=== PATIENT | male | born 1940 ===

== ENCOUNTER 2016-07-11 13:19 | Inpatient (IN) | payer MEDICARE, OTHER ==
[2016-07-11] VITALS (7 sets, daily range): BP systolic 112–144; BP diastolic 69–77; PULSE 68–84; RESP 16–19; O2SAT 95–98
[~2016-07-11] VITALS: Ht 167.6 cm; Wt 105.9 kg
--- NOTE | 2016-07-11 13:47 | ED.REPORT ---
HPI-Fever Date of Service July 11, 2016 ED Provider: History of Present Illness: weak, tired, no eating since Saturday. nausea, no vomiting. [facility] is primary care [facility]. unknown A1c. home meds, metformin, generic lipitor meds are from [facility] in [place]. normally healthy ongoing for 3 to 4 days. Went to bed early Saturday and has not been out of bed since. will move from bed to couch. denies pain Nursing Notes Stated Complaint: TIRED/FEVER/LOSS OF APPETITE Chief Complaint: General Complaint Nursing Notes Reviewed: Yes Allergies: Coded Allergies: No Known Allergies (Unverified , 07/11/16) Scheduled Aspirin Chew (Aspirin Chew) 81 Mg Chew 81 MG PO DAILY Atorvastatin (Lipitor) 20 Mg Tablet 20 MG PO DAILYWD Betamethasone/Propylene Glyc (Betamethasone Dp Aug 0.05% Crm) 15 Gm Cream..g. 1 APPLIC TP DAILY TO DRY PATCHES ON LEG AND TORSO Lisinopril (Lisinopril) 10 Mg Tablet 10 MG PO DAILY Metformin ER (Metformin ER) 500 Mg Tablet 500 MG PO DAILYWD Scheduled PRN Ibuprofen (Ibuprofen) 200 Mg Capsule 200-400 MG PO QID PRN PRN For Pain General Time Seen by MD: 13:46 Chief Complaint Fever currently Hx Obtained From: Spouse Onset Occurred: 3 days ago Symptom Duration: Since onset Past Medical History Past Medical History h/o pancreatitis Reports: Diabetes mellitus (dx as a DM for 10 years 07/11/2016), Hyperlipidemia, Hypertension, Denies: Asthma Past Surgical History Reports: Cholecystectomy Smoking History Former Smoker (quit 5 years ago, will occasion smoke a cigar) Social History Alcohol Use: Denies alcohol use Drug Use: Denies drug use Other Social History: Occupation lives with . 1 [facility] 07/11/2016 Ambulatory Status Independent Review of Systems Basic Review of Systems Musculoskeletal: No extremity swelling, No extremity pain, Full range of motion , Joints NL Allergy / Immune: No allergy Psychiatric: Normal thought content Physical Exam Initial Vital Signs Vital Signs (First) Date Time Temp Pulse Resp B/P Pulse Ox O2 Delivery O2 Flow Rate FiO2 07/11/16 13:31 37.6 84 19 124/72 95 Room Air Initial VS: Reviewed, Vital signs normal Head / Eyes: Atraumatic, Normocephalic, PERRL ENT: Mucous membranes moist, Conjunctiva normal, No scleral icterus Abdomen / GI: Soft, Non-tender, No guarding, No rebound, No distention Back: No CVA tenderness Lymphatic: No lymphadenopathy Extremities: Vascular intact, Neuro intact, No swelling, No tenderness Psychiatric: Mood/affect normal, Behavior normal, Normal thought content General/Constitutional: Awake, Alert, No acute distress Appearance / Presentation: Positive: Appears older than age Neck: Atraumatic, Supple, No meningismus Respiratory / Chest: Atraumatic, Breath sounds NL, Breath sounds = bilat Cardiovascular: Heart rate NL Heart Sounds / Murmur: Positive: Murmur present... Skin: Atraumatic, Color NL, No rash Neurologic: Oriented X3, Speech NL, No motor deficits Interpretation & Diagnostics Interpretation & Diagnostics: PROCEDURE: CT BRAIN WITHOUT CONTRAST ([id number]) INDICATIONS: 75-year-old man with weakness. TECHNIQUE: Noncontrast 4.5 mm thick angled axial sections acquired from the foramen magnum to the vertex, with coronal reformats. COMPARISON: None. FINDINGS: Image quality: Excellent. CSF spaces: Basal cisterns are patent. No extra-axial fluid collections. The ventricles are symmetric in size and shape. Brain: No intracranial bleeds or masses. There is moderate cerebral volume loss for age, with resultant sulcal prominence, most pronounced in frontal lobes bilaterally. There are mild periventricular and deep white matter chronic small vessel ischemic changes. There is intracranial internal carotid artery atherosclerosis. Skull and face: Calvarium and visualized facial bones appear intact, without suspicious lesions. Sinuses: Visualized sinuses and mastoids are clear. IMPRESSION: 1. No acute intracranial abnormalities. 2. Mild cerebral volume loss and chronic microvascular ischemic changes. Dictated by: Darin Denise M.D. on 07/11/2016 at 15:04 Approved by: Darin Denise M.D. on 07/11/2016 at 15:12 Lab Results Interpretation Result Diagram: 07/11/16 1345 07/11/16 1345 Test 07/11/16 13:45 07/11/16 14:10 White Blood Count 14.1th/mm3 (3.8-10.1) Red Blood Count 4.44mil/mm3 (4.40-5.80) Hemoglobin 13.2g/dL (13.8-17.2) Hematocrit 38.6% (41.0-50.0) Mean Corpuscular Volume 86.9fL (81-100) Mean Corpuscular Hemoglobin 29.7pg (27.0-35.0) Mean Corpuscular Hemoglobin Concent 34.2% (32.0-37.0) Red Cell Distribution Width 12.3% (12.3-15.4) Platelet Count 209bil/L (150-400) Neutrophils (%) (Auto) 83.6% (40-74) Lymphocytes (%) (Auto) 8.9% (14-46) Monocytes (%) (Auto) 7.0% (4-12) Eosinophils (%) (Auto) 0% (0-5) Basophils (%) (Auto) 0.1% (0-3) Sodium Level 129mEq/L (134-144) Potassium Level 4.3mEq/L (3.5-5.2) Chloride Level 89mEq/L (97-108) Carbon Dioxide Level 23mmol/L (18-29) Blood Urea Nitrogen 17mg/dL (8-27) Creatinine 0.84mg/dL (0.76-1.27) Estimat Glomerular Filtration Rate 95mL/min (>59) Glucose Level 314mg/dL (60-99) Lactic Acid Level 1.7mmol/L (0.4-2.0) Calcium Level 9.3mg/dL (8.5-10.1) Total Bilirubin 0.6mg/dL (0.0-1.2) Aspartate Amino Transf (AST/SGOT) 13U/L (0-50) Alanine Aminotransferase (ALT/SGPT) 10U/L (0-44) Alkaline Phosphatase 72U/L (25-160) Troponin T < 0.010ug/L (0.0-0.011) Pro-B-Type Natriuretic Peptide 623.3pg/mL (0-486) Total Protein 7.6g/dL (6.4-8.4) Albumin 3.3g/dL (3.4-5.0) Urine Color Yellow (YELLOW) Urine Appearance Hazy (CLEAR,HAZY) Urine pH 5.5 (5.0-8.0) Urine Specific [place] 1.030 (1.003-1.035) Urine Protein 300mg/dL (NEG,TRACE) Urine Glucose (UA) 1000mg/dL (NEGATIVE) Urine Ketones 15mg/dL (NEGATIVE) Urine Occult Blood Sm (NEGATIVE) Urine Nitrite Negative (NEGATIVE) Urine Bilirubin Negative (NEGATIVE) Urine Urobilinogen Normalmg/dL (NORMAL) Urine Leukocyte Esterase Negative (NEGATIVE) Urine RBC 0-2/hpf (0-2) Urine WBC 0-5/hpf (0-5) Urine Epithelial Cells Occasional/hpf (NONE-MOD) Urine Crystals None seen (NONE SEEN) Urine Bacteria Few/hpf (NONE-FEW) Urine Hyaline Casts Occasional/lpf (NONE) Urine Granular Casts Occasional (NONE SEEN) Urine Waxy Casts Occassional (NONE SEEN) Urine Red Blood Cell Casts None seen (NONE SEEN) Urine White Blood Cell Casts None seen (NONE SEEN) Urine Mucus Present (None Seen) Urine Trichomonas None seen (NONE SEEN) Urine Yeast None (NONE SEEN) Urinalysis Comment None Urine Culture Reflexed Not indicated X-Ray Chest Interpretation Chest Xray Interpretation: ROCEDURE: X-RAY CHEST, TWO VIEWS ([id number]) INDICATIONS: fever TECHNIQUE: 2 views of the chest were acquired. COMPARISON: None. FINDINGS: Surgical changes and devices: None. Lungs and pleura: No pleural effusions or pneumothorax. Lungs are clear. Slight increased interstitial markings within the infrahilar regions probably are chronic. Mediastinum: Mediastinal contours are normal. Heart size is normal. There may be mild aortic atherosclerosis. Bones and chest wall: No suspicious bony abnormalities. Degenerative changes of the bilateral shoulders and spine are incidentally noted. Soft tissues appear unremarkable. IMPRESSION: No acute cardiopulmonary process is evident. No definite pneumonia or overt heart failure. Dictated by: Robbie Mesa M.D. on 07/11/2016 at 13:27 Approved by: Robbie Mesa M.D. on 07/11/2016 at 13:28 CT Abd / Pelvis Interpretation After the administration of intravenous contrast, 5 mm thick sections acquired from the diaphragm to the symphysis. 5 mm coronal and sagittal reformats were acquired. For radiation dose reduction, the following was used: automated exposure control, adjustment of mA and/or kV according to patient size. COMPARISON: None. FINDINGS: Image quality: Diagnostic. ABDOMEN: Lung bases: Lung bases are clear. Heart size is normal. Solid organs: The gallbladder is surgically absent. Mild intrahepatic biliary dilatation is present with the common bile duct is prominent in size then noted to measure up to approximately 9 mm in diameter. The liver demonstrates a small hepatic cyst along the anterior margin of the medial left hepatic lobe. The spleen, adrenals, and kidneys are within normal limits. A few small cysts probably are present involving the left kidney. No solid renal lesions are appreciated. There is no hydronephrosis. Subtle calcifications within the pancreas are noted. The pancreas is otherwise unremarkable. No peripancreatic inflammation is identified. Peritoneum and bowel: The stomach, duodenum, and remainder of the small bowel loops are nondilated. Moderate residual stool is seen within the colon. There is no bowel obstruction. No mesenteric inflammation is evident. There is no free fluid, loculated fluid collection or free air. Nodes and vessels: No retroperitoneal or mesenteric adenopathy by size criteria. Aorta and inferior vena cava are normal in size. Aortic and iliac artery atherosclerosis is present. Miscellaneous and bones: No ventral hernias. Moderate to severe multilevel degenerative changes of the imaged thoracolumbar spine are present. No acute fractures or suspicious osseous lesions are present. PELVIS: Genitourinary: Bladder wall thickness is normal. The prostate is not enlarged. Coarse calcifications within the prostate are noted. The ureters are nondilated. Miscellaneous: No inguinal hernias or adenopathy. No free fluid, loculated fluid collection or free air is evident. Bones: No suspicious bony lesions. No acute pelvic fractures are evident. There are severe degenerative changes of the bilateral hips. Calcifications involving the proximal bilateral hamstrings tendons may be related to calcific tendinitis or chronic partial-thickness injuries. Severe degenerative changes of the sacroiliac joints are also present. IMPRESSION: 1. No acute abnormality is evident within the abdomen or pelvis. 2. No bowel obstruction or bowel inflammation. 3. Mild enlargement of the common bile duct probably is within normal limits for this patient, given the prior cholecystectomy. If the patient's liver function tests are persistently elevated and/or increasing, MRCP may be helpful to exclude the possibility of a small stone within the common bile duct. 4. Prominent degenerative changes of the lumbosacral spine and hips. Dictated by: Robbie Mesa M.D. on 07/11/2016 at 14:15 Approved by: Robbie Mesa M.D. on 07/11/2016 at 14:21 Re-Eval/Medical Decision Med Decision/Clinical Course 75 year old male presents for evualation of wekness and fatigue with vomiting. Presents with . She reports he went to bed early on Saturday and has been on the couch or in bad since then. Chest x-ray is normal, no source of fever is identifed in the urine or abd CT. Consult with Dr. Callejas, patient is being admited to the hospital. No sign of appendicitis or mengitis Source of Hx: Old records (none in EMR) Discharge & Departure Impression: Primary Impression: Fever Fever type: unspecified Qualified Code: R50.9 - Fever, unspecified Additional Impressions: Heart murmur Endocarditis Endocarditis type: unspecified Chronicity: acute Qualified Code: I33.9 - Acute and subacute endocarditis, unspecified Generalized weakness Disposition: ADMITTED TO HOSPITAL EDSupervising Provider for APC: José Miguel Callejas MD Attending Statement This is a patient initially seen and examined by the mid-level provider. However I personally interviewed and examined the patient. This is a 75-year- old type II diabetic without a reported history of manic murmur or cardiac disease who presents complaining of several days of fever and progressive global weakness to the point he can barely get out of bed. He has been running fevers up to 103 as of this morning. I Fredy had no cough, shortness of breath , abdominal pain, vomiting, dysuria or rash. He was seen by the mid-level provider workup is pursued that is notable for leukocytosis, mild nonspecific hyponatremia, but his chest x-ray is negative for dwight infiltrate or abnormality, urinalysis is negative. Abdominal CT was negative for an intra-abdominal source, although I was unable to obtain any GI symptomatology or exam findings. When I examined the patient, he has a markedly 3-4 out of 6 heart murmur-and states that that is new (or at least that he is previously unaware of) a heart murmur. This certainly raises concern and possibility of endocarditis is an etiology. Given a third blood cultures being drawn. I have ordered an echocardiogram to be obtained as an inpatient to evaluate for endocarditis. I have also discussed the case with the infectious disease [employer] sales consultant Dr. Canseco and will follow. He recommends drawing the fluid culture, but not starting antibiotics empirically at this time. She is being admitted to the hospitalist service. I spoke with the admitting hospitalist, as also requested a respiratory PCR panel be added-so I have ordered this. Patient does not know his current medication list, the family indicates there someone arriving at home and will be able to go through and will be able to call to get a list of his medications. Yesika Flynn July 11, 2016 13:47 José Miguel Callejas MD July 11, 2016 16:09
[2016-07-11] MEDS ORDERED: 0.9% Sodium Chloride 1,000 ML IV ONE (14:05)
[2016-07-11 14:12] LABS: BASOPHILS % (AUTO) 0.1 % (0-3); EOSINOPHILS % (AUTO) 0 % (0-5); Mean Corpuscular Hemoglobin 29.7 pg (27.0-35.0); Mean Corpuscular Volume 86.9 fL (81-100); NEUTROPHILS % (AUTO) 83.6 % (40-74); Platelet Count 209 bil/L (150-400)
[2016-07-11 14:26] LABS: TROPONIN T < 0.010 ug/L (0.0-0.011)
--- NOTE | 2016-07-11 14:29 | DRSVH ---
PROCEDURE: X-RAY CHEST, TWO VIEWS ([id number]) INDICATIONS: fever TECHNIQUE: 2 views of the chest were acquired. COMPARISON: None. FINDINGS: Surgical changes and devices: None. Lungs and pleura: No pleural effusions or pneumothorax. Lungs are clear. Slight increased intersti tial markings within the infrahilar regions probably are chronic. Mediastinum: Mediastinal contours are normal. Heart size is normal. There may be mild aortic ather osclerosis. Bones and chest wall: No suspicious bony abnormalities. Degenerative changes of the bilateral shoul ders and spine are incidentally noted. Soft tissues appear unremarkable. IMPRESSION: No acute cardiopulmonary process is evident. No definite pneumonia or overt heart failur e. Dictated by: Robbie Mesa M.D. on 07/11/2016 at 13:27 Approved by: Robbie Mesa M.D. on 07/11/2016 at 13:28
[2016-07-11 14:36] LABS: APPEARANCE,URINE HAZY (CLEAR,HAZY); COLOR,URINE YELLOW (YELLOW); PH,URINE 5.5 (5.0-8.0)
[2016-07-11 14:37] LABS: OCCULT BLOOD,URINE SM (NEGATIVE); UROBILINOGEN,URINE NORMAL (NORMAL)
--- NOTE | 2016-07-11 15:13 | DRSVH ---
PROCEDURE: CT BRAIN WITHOUT CONTRAST ([id number]) INDICATIONS: 75-year-old man with weakness. TECHNIQUE: Noncontrast 4.5 mm thick angled axial sections acquired from the foramen magnum to the vertex, with c oronal reformats. COMPARISON: None. FINDINGS: Image quality: Excellent. CSF spaces: Basal cisterns are patent. No extra-axial fluid collections. The ventricles are symmet ed in size and shape. Brain: No intracranial bleeds or masses. There is moderate cerebral volume loss for age, with resul tant sulcal prominence, most pronounced in frontal lobes bilaterally. There are mild periventricular and deep white matter chronic small vessel ischemic changes. There is intracranial internal carotid artery atherosclerosis. Skull and face: Calvarium and visualized facial bones appear intact, without suspicious lesions. Sinuses: Visualized sinuses and mastoids are clear. IMPRESSION: 1. No acute intracranial abnormalities. 2. Mild cerebral volume loss and chronic microvascular ischemic changes. Dictated by: Darin Denise M.D. on 07/11/2016 at 15:04 Approved by: Darin Denise M.D. on 07/11/2016 at 15:12
--- NOTE | 2016-07-11 15:23 | DRSVH ---
PROCEDURE: CT ABDOMEN AND PELVIS WITH CONTRAST ([id number]) INDICATIONS: fever TECHNIQUE: After the administration of intravenous contrast, 5 mm thick sections acquired from the diaphragm to the symphysis. 5 mm coronal and sagittal reformats were acquired. For radiation dose reduction, the following was used: automated exposure control, adjustment of mA and/or kV according to patient siz e. COMPARISON: None. FINDINGS: Image quality: Diagnostic. ABDOMEN: Lung bases: Lung bases are clear. Heart size is normal. Solid organs: The gallbladder is surgically absent. Mild intrahepatic biliary dilatation is present with the common bile duct is prominent in size then noted to measure up to approximately 9 mm in diam eter. The liver demonstrates a small hepatic cyst along the anterior margin of the medial left hepat ic lobe. The spleen, adrenals, and kidneys are within normal limits. A few small cysts probably are present involving the left kidney. No solid renal lesions are appreciated. There is no hydronephro sis. Subtle calcifications within the pancreas are noted. The pancreas is otherwise unremarkable. No peripancreatic inflammation is identified. Peritoneum and bowel: The stomach, duodenum, and remainder of the small bowel loops are nondilated. Moderate residual stool is seen within the colon. There is no bowel obstruction. No mesenteric infl ammation is evident. There is no free fluid, loculated fluid collection or free air. Nodes and vessels: No retroperitoneal or mesenteric adenopathy by size criteria. Aorta and inferior vena cava are normal in size. Aortic and iliac artery atherosclerosis is present. Miscellaneous and bones: No ventral hernias. Moderate to severe multilevel degenerative changes of the imaged thoracolumbar spine are present. No acute fractures or suspicious osseous lesions are pre sent. PELVIS: Genitourinary: Bladder wall thickness is normal. The prostate is not enlarged. Coarse calcificatio ns within the prostate are noted. The ureters are nondilated. Miscellaneous: No inguinal hernias or adenopathy. No free fluid, loculated fluid collection or free air is evident. Bones: No suspicious bony lesions. No acute pelvic fractures are evident. There are severe degener ative changes of the bilateral hips. Calcifications involving the proximal bilateral hamstrings tend ons may be related to calcific tendinitis or chronic partial-thickness injuries. Severe degenerative changes of the sacroiliac joints are also present. IMPRESSION: 1. No acute abnormality is evident within the abdomen or pelvis. 2. No bowel obstruction or bowel inflammation. 3. Mild enlargement of the common bile duct probably is within normal limits for this patient, given the prior cholecystectomy. If the patient's liver function tests are persistently elevated and/or i ncreasing, MRCP may be helpful to exclude the possibility of a small stone within the common bile mnanie t. 4. Prominent degenerative changes of the lumbosacral spine and hips. Dictated by: Robbie Mesa M.D. on 07/11/2016 at 14:15 Approved by: Robbie Mesa M.D. on 07/11/2016 at 14:21
[2016-07-11] MEDS ORDERED: METF500T7 PO (16:06)
[2016-07-11] MEDS ORDERED: ATOR20TA PO (16:06)
[2016-07-11] MEDS ORDERED: LISI10TA PO (16:06)
[2016-07-11] MEDS ORDERED: ASPI81TA3 PO (16:10)
[2016-07-11] MEDS ORDERED: IBUP200C PO (16:11)
[2016-07-11] MEDS ORDERED: Alum-Mag Hydrox-Simeth 30 mL Suspension PO PRN ×2 (16:20→18:40)
[2016-07-11] MEDS ORDERED: Ondansetron 2 mg/mL 2 mL Inj IVPUSH PRN ×2 (16:20→18:40)
[2016-07-11] MEDS ORDERED: BETA15CR38 TP (16:26)
[2016-07-11] MEDS: 0.9% Sodium Chloride 1,000 ML IV SCH (17:19)
--- NOTE | 2016-07-11 17:57 | PCM.HPMED ---
Subjective Date of Service July 11, 2016 Primary Provider: Admitting Physician: Tamia Hollis DO Primary Care Physician: Georges Attending Physician: Tamia Hollis DO Allergies Coded Allergies: No Known Allergies (Unverified , 07/11/16) PMH Social History Hx Alcohol Use: Yes (less than once a month) Hx Substance Use: No Smoking Status: Former Smoker Exam Vital Signs Vital Sign - Last Date Time Temp Pulse Resp B/P Pulse Ox O2 Delivery O2 Flow Rate FiO2 07/11/16 17:44 38.6 82 18 134/72 98 Room Air Lab and Diagnostics Result Diagram: 07/11/16 1345 07/11/16 1345 Assessment & Plan HPI: Patient is a 75-year-old gentleman who presented to the emergency room with the complaint of weakness and fevers. The patient states that for the last few days he has been feeling weak and has had temperatures from 101F -103 F. The patient has also complained of overall generalized weakness. There is a new onset murmur that was found upon exam while in the ER and there are some concerns for possible endocarditis. The patient does have leukocytosis with a white blood cell count of 14.1, brain CT was negative, abdomen CT was negative. Both cardiology and infectious disease were consulted from the ED. Home medications: Aspirin 81 mg daily Lipitor 20 mg daily Betamethasone when necessary Ibuprofen 200-400 mg by mouth 4 times a day Lisinopril 10 mg daily Metformin 500 mg daily with dinner. Allergies: No known allergies PMHx: Hypertension Hyperlipidemia Diabetes SHx: Cholecystectomy FHx: Mother in her 80s secondary to PR Brother brain aneurysm Family history of CVA SocHx: Occupation: Retired [employer] Tobacco history: Patient quit 5 years ago previous one to 2 pack per day smoker for 20 years Alcohol use: Occasional use, previous heavy drinker quit heavy drinking 26 years ago Drug use: Patient denies ROS: A complete review of systems was performed or attempted to be performed. Please see HPI for pertinent positives, all other systems are negatives. Physical Exam: GEN: Patient was awake, alert, responding appropriately to questions, lethargic HEENT: Pupils equal round and reactive to light, extraocular eye muscles intact , Neck soft supple, trachea midline, nomocephalic/atraumatic CV: +S1/S2, regular rate and rhythm, grade 2/6 systolic murmur auscultated Respiratory: CTAB, no wheezes, rales, rhonchi GI: +bowel sounds x4, soft, compressible, nontender to palpation Skin: Warm to touch, moist EXT: no clubbing, cyanosis, edema Neuro: Cranial nerves II-XII grossly intact Psych: mood and affect were appropriate Assessment and Plan 75-year-old male presents with a complaint of lethargy and fever SIRS criteria met (present on admission) -Leukocytosis white blood cell count 14.1 -Fever 38.6 -Blood cultures pending -Viral PCR pending -Antibiotics to start after echo as per infectious disease -Infectious disease consulted (Dr. Canseco) Possible endocarditis (present on admission) -Stat echo for the morning -Cardiology consulted (Dr. Monge) -Start antibiotics after echo -Continue telemetry Diabetes -Hemoglobin A1c pending -Insulin sliding scale -Accu-Cheks before meals and at bedtime -Hold metformin as patient recently had contrast for imaging studies - Continue gentle hydration secondary to IV contrast and metformin use Hyperlipidemia -Continue home dose of atorvastatin Hypertension -Continue home dose of lisinopril 10 mg daily DVT prophylaxis: Lovenox Diet: Diabetic Code Status: Full code Disposition: Due to the nature of the patient's current diagnosis anticipated stay is greater than 2 midnight. Time spent 1 hour Tamia Hollis DO July 11, 2016 17:57
[2016-07-11] MEDS ORDERED: Polyethylene Glycol (PEG) 17 Gm Powder PO PRN (18:40)
--- NOTE | 2016-07-11 18:40 | NUR ---
Admit \ Pt. admitted to unit from ER at 1655. Pt. oriented to room. Admit question completed. Med rec completed. Pt. reports no pain. Pt. vitals: temp 38.6, pulse 82, respirations 18, bp 134/72, 98% O2 on room air. Bed in lowest position. Call in pt. reach.
[2016-07-11] MEDS ORDERED: Glucose 40% Oral Gel 15 Gm Tube PO PRN (18:50)
--- NOTE | 2016-07-11 19:45 | PCM.ADCARE ---
Advance Care Planning Note CODE STATUS: Purpose of encounter: Goals of care Parties in attendance: The patient, his Courtney, his son Bennett Decisional capacity: Good Plan: The patient is aware of the current diagnosis and would like to continue to be full code. The patient and his family understands that this means for chest compressions, intubation, pressors, and all measures involved with CPR. CODE STATUS: Full code Time spent with advanced care planning: Greater than 16 minutes Tamia Hollis DO July 11, 2016 19:45
[2016-07-11] MEDS: Insulin LISPRO 300 Unit/3 mL Inj SUBQ SCH (21:48)
[2016-07-12] VITALS (10 sets, daily range): BP systolic 126–150; BP diastolic 65–74; PULSE 61–79; RESP 18–20; O2SAT 93–97
[2016-07-12] MEDS: 0.9% Sodium Chloride 1,000 ML IV SCH ×3 (03:21→21:41)
--- NOTE | 2016-07-12 05:09 | NUR ---
Fever Moderate fever max T 38.2, pt flushed face, feel chills,Tylenol administered at evening, fever gradually resolved. T went up again around 0130, Tylenol 975mg administered, recheck in about 1hr: fever remains 38, Ibuprofen administered, cold washcloth applied on forehead, remove the blanket, will recheck T. plan to hold ABX until ECHO done this am to r/o Endocarditis. Blood culture pending. Oral fluid encouraged to prevent dehydration, VI405ms/hr running. Pt does no show s/s of infection of respiration,GI/ or skin, denies SOB,cough,nasal discharge ,abdominal pain,n/v/diarrhea or urinary urgency,dysuria or flank pain. Denies headache,no stiff neck. denies chest pain or palpitation. SR 70-90s on tele. Soft systolic murmur. Addendum: 07/12/16 at 0544 by SEPIDEH OGLESBY RN Fever resolved, T37.1
--- NOTE | 2016-07-12 06:26 | NUR ---
STAT ECHO ECHO Department ([id number]) called this morning,no one answers the phone, message left: STAT ECHO ordered and need to be done this morning. Report will be given to incoming day shift.
[2016-07-12 06:31] LABS: Mean Corpuscular Hemoglobin 29.9 pg (27.0-35.0); Mean Corpuscular Volume 87.6 fL (81-100)
[2016-07-12 07:01] LABS: Magnesium 1.7 mg/dL (1.6-2.6)
[2016-07-12] MEDS ORDERED: Magnesium Sulf 4 Gm/100 mL H2O 4 GM in IV Premix 1 EACH IV ONE (08:00)
[2016-07-12] MEDS: Insulin LISPRO 300 Unit/3 mL Inj SUBQ SCH ×4 (09:29→21:41)
--- NOTE | 2016-07-12 11:15 | DRSVH ---
[facility] [address] [place] [address] Echocardiogram Report Name: FEDE TAVARES Study Date: 07/12/2016 Height: 66 in Hospital Exam Location: [facility] Weight: 230 lb Gender: Male BSA: 2.1 m2 : 1940 Age: 75 yrs BP: 127/65 mmHg Reason For Study: FEVER, MURMUR Ordering Physician: ELIF TEAM Performed By: Anton Galindo Referring Physician: Jennifer MUNOZ Interpretation Summary Left ventricular wall thickness is mildly increased. Left ventricular systolic function is normal without focal wall motion abnormalities. The ejection fraction is estimated to be 60-65%. Assessment of diastolic parameters indicates a relaxation abnormality of the left ventricle, consistent with normal filling pressures. The right ventricle is normal in size and function. The right ventricular systolic pressure is estimated at 31 mmHg assuming a right atrial pressure of 8 mm Hg. The left atrium is severely dilated. The right atrium is mildly dilated. There is mild mitral regurgitation. There is no other significant valvular heart disease. There is no obvious valvular vegetation identified on this exam. The ascending aorta is mildly enlarged. Procedure: A two-dimensional transthoracic echocardiogram with color flow and Doppler was performed. The study quality was technically adequate. There is no prior echocardiogram noted for this patient. The patient was in normal sinus rhythm during the exam. Left Ventricle: The left ventricle is normal in size. Left ventricular wall thickness is mildly increased. Left ventricular systolic function is normal without focal wall motion abnormalities. The ejection fraction is estimated to be 60-65%. Assessment of diastolic parameters indicates a relaxation abnormality of the left ventricle, consistent with normal filling pressures. Right Ventricle: The right ventricle is normal in size and function. Atria: The left atrium is severely dilated. The right atrium is mildly dilated. The interatrial septum is intact with no evidence for an atrial septal defect. Mitral Valve: The mitral valve is normal in structure and function. There is mild mitral regurgitation. Aortic Valve: The aortic valve is trileaflet. The aortic valve is mildly calcified. The aortic valve opens well. There is trace aortic regurgitation. Tricuspid Valve: The tricuspid valve is normal in structure and function. There is trace tricuspid regurgitation. The right ventricular systolic pressure is estimated at 31 mmHg assuming a right atrial pressure of 8 mm Hg. Pulmonic Valve: The pulmonic valve is normal in structure and function. There is trace pulmonic regurgitation. There is no other significant valvular heart disease. There is no obvious valvular vegetation identified on this exam. Consider ANNE if there is a high degree of clinical suspicion for endocarditis and clinically appropriate. Great Vessels: The aortic root is normal size. The ascending aorta is mildly enlarged. The pulmonary artery is normal size. The IVC is of normal diameter and collapses less than 50% with a sniff. This suggests a right atrial pressure of 8 mm Hg. Pericardium/ Pleura There is no pericardial effusion. There is no pleural effusion. MMode/2D Measurements & Calculations LVIDd: 5.4 cm LA dimension: 4.3 cm RA long axis Ao root diam LVIDs: 3.2 cm FS: 40.4 % LA A2 area: 26.2 cm RA area Aortic Jxn: 2.8 cm EPSS: 0.59 cm LA A4 area: 33.8 cm asc Aorta Diam IVSd: 1.2 cm LA length (vol) : 21.9 cm LVPWd: 1.1 cm RA vol Ao Arch Diam (Prox LA vol: 106.5 ml : 73.2 ml Trans): 2.9 cm LA vol index RA : 34.5 mm2 IVC diam: 2.0 cm LV kim. diameter/BSA LV sys. diameter/BSA (cm/m^2): 2.5 (cm/m^2): 1.5 Doppler Measurements & Calculations Ao V2 max MV E max roman MV E/A: 0.77 TR max roman : 175.4 cm/sec : 58.5 cm/sec Med Peak E' Roman : 241.6 cm/sec Ao max PG MV A max roman TR max P.3 mmHg : 12.3 mmHg : 76.1 cm/sec E/E' med: 10.6 PA V2 max: 82.7 cm/sec Ao mean PG Pulm A Revs Dur PA mean P.6 mmHg : 8.0 mmHg PA Accel Time: 0.12 sec MV A dur: 0.14 sec MV dec time Ao V2 mean PA V2 mean Pulm A Revs Dur - MV A : 0.24 sec : 136.6 cm/sec : 61.5 cm/sec Dur: -0.02 msec Ao V2 VTI PA pr(Accel) : 44.4 cm : 25.8 mmHg Reading Physician:SAMI
--- NOTE | 2016-07-12 14:59 | NUR ---
Social Work: Initial Assessment Data: Pt is a 75 y/o male admitted for fever, heart murmur, R/O endocarditis. Pt's PCP is not listed. Pt's insurance is Medicare with [place] [facility]. EMR reviewed. Readmit score is 2. OPERATOR AND TRUCK DRIVER met with pt and significant other at bedside, role explained. Pt states he and his live with his son and his family. Pt uses no DME at baseline, drives, has no stairs, no hx of HH or SNF, no LTC or VA benefits, and is not a caregiver. OPERATOR AND TRUCK DRIVER will continue to follow for possible d/c needs. Assessment: Pt who is independent at baseline. Plan: Pt will d/c home via POV when medically stable, OPERATOR AND TRUCK DRIVER will continue to follow for possible d/c needs. NOEL Coronado Addendum: 07/12/16 at 1502 by BRENDA GARCIA SS Amended: Links added.
--- NOTE | 2016-07-12 16:03 | NUR ---
Concerns: expressed concern that patient face/eyes appeared swollen. Reviewed medication list and compared to home medication list and I&Os. No complaints of itching or dyspnea. Discussed with patient to call if any of these symptoms occur. MD notified of concerns.
--- NOTE | 2016-07-12 22:38 | PCM.PNMED ---
Subjective Date of Service July 12, 2016 Subjective The patient states that he ate some progress morning first time in 4 days. He states he is feeling a little bit better and has no fever today. His is concerned as she thinks that his face looks more swollen than usual. Patient has no other new complaints. Exam Vital Signs Vital Sign - Last Date Time Temp Pulse Resp B/P Pulse Ox O2 Delivery O2 Flow Rate FiO2 07/12/16 21:46 37.6 07/12/16 19:33 78 18 150/74 94 Room Air Intake and Output 07/11/16 07/11/16 07/12/16 Cumulative From/Thru 15:00 23:00 07:00 07/11/16 13:31 - 07/12/16 05:19 Intake Total 1000 ml 1156 ml 2156 ml Output Total 150 ml 150 ml Balance 850 ml 1156 ml 2006 ml IV Total 1000 ml 1156 ml 2156 ml Output Urine Total 150 ml 150 ml # Voids 1 1 Exam General: Patient is in no apparent distress. HEENT: Head is atraumatic and normocephalic. However, his states that his face is more swollen than usual. Eyes: Pupils are equally round and reactive to light and accommodation. Extraocular muscles are intact. Sclera are white, anicteric. Subconjunctival mucosa is pink. Ears and nose are unremarkable. Oropharynx: There is no mucosal lesions, there is no thrush, there is no pharyngitis. Neck: Is supple, there are no nodes, or masses or tenderness. Chest: Is clear to auscultation and percussion. There are no rales, rhonchi, wheezes or rubs. Heart: Rate, rhythm is regular. There is a grade 2/6 systolic ejection murmur heard best at the left sternal border. Abdomen: Good bowel sounds are present. Abdomen is soft, nontender, no organomegaly or masses were appreciated. Extremities: Are symmetrical and well perfused. There is no edema, there is no cellulitis, no rash. Neurologic: There are no focal neurological deficits. Cranial nerves II through XII are intact. There are no sensory or motor deficits. Psychiatric: Patients mood is calm and he shows no sign of agitation. Genital: Deferred Rectal: Deferred Lab and Diagnostics Result Diagram: 07/12/16 0607 07/12/16 0607 X-Rays, CTs and MRIs PROCEDURE: CT ABDOMEN AND PELVIS WITH CONTRAST ([id number]) INDICATIONS: fever TECHNIQUE: After the administration of intravenous contrast, 5 mm thick sections acquired from the diaphragm to the symphysis. 5 mm coronal and sagittal reformats were acquired. For radiation dose reduction, the following was used: automated exposure control, adjustment of mA and/or kV according to patient size. COMPARISON: None. FINDINGS: Image quality: Diagnostic. ABDOMEN: Lung bases: Lung bases are clear. Heart size is normal. Solid organs: The gallbladder is surgically absent. Mild intrahepatic biliary dilatation is present with the common bile duct is prominent in size then noted to measure up to approximately 9 mm in diameter. The liver demonstrates a small hepatic cyst along the anterior margin of the medial left hepatic lobe. The spleen, adrenals, and kidneys are within normal limits. A few small cysts probably are present involving the left kidney. No solid renal lesions are appreciated. There is no hydronephrosis. Subtle calcifications within the pancreas are noted. The pancreas is otherwise unremarkable. No peripancreatic inflammation is identified. Peritoneum and bowel: The stomach, duodenum, and remainder of the small bowel loops are nondilated. Moderate residual stool is seen within the colon. There is no bowel obstruction. No mesenteric inflammation is evident. There is no free fluid, loculated fluid collection or free air. Nodes and vessels: No retroperitoneal or mesenteric adenopathy by size criteria. Aorta and inferior vena cava are normal in size. Aortic and iliac artery atherosclerosis is present. Miscellaneous and bones: No ventral hernias. Moderate to severe multilevel degenerative changes of the imaged thoracolumbar spine are present. No acute fractures or suspicious osseous lesions are present. PELVIS: Genitourinary: Bladder wall thickness is normal. The prostate is not enlarged. Coarse calcifications within the prostate are noted. The ureters are nondilated. Miscellaneous: No inguinal hernias or adenopathy. No free fluid, loculated fluid collection or free air is evident. Bones: No suspicious bony lesions. No acute pelvic fractures are evident. There are severe degenerative changes of the bilateral hips. Calcifications involving the proximal bilateral hamstrings tendons may be related to calcific tendinitis or chronic partial-thickness injuries. Severe degenerative changes of the sacroiliac joints are also present. IMPRESSION: 1. No acute abnormality is evident within the abdomen or pelvis. 2. No bowel obstruction or bowel inflammation. 3. Mild enlargement of the common bile duct probably is within normal limits for this patient, given the prior cholecystectomy. If the patient's liver function tests are persistently elevated and/or increasing, MRCP may be helpful to exclude the possibility of a small stone within the common bile duct. 4. Prominent degenerative changes of the lumbosacral spine and hips. Dictated by: Robbie Mesa M.D. on 07/11/2016 at 14:15 Approved by: Robbie Mesa M.D. on 07/11/2016 at 14:21 PROCEDURE: CT BRAIN WITHOUT CONTRAST ([id number]) INDICATIONS: 75-year-old man with weakness. TECHNIQUE: Noncontrast 4.5 mm thick angled axial sections acquired from the foramen magnum to the vertex, with coronal reformats. COMPARISON: None. FINDINGS: Image quality: Excellent. CSF spaces: Basal cisterns are patent. No extra-axial fluid collections. The ventricles are symmetric in size and shape. Brain: No intracranial bleeds or masses. There is moderate cerebral volume loss for age, with resultant sulcal prominence, most pronounced in frontal lobes bilaterally. There are mild periventricular and deep white matter chronic small vessel ischemic changes. There is intracranial internal carotid artery atherosclerosis. Skull and face: Calvarium and visualized facial bones appear intact, without suspicious lesions. Sinuses: Visualized sinuses and mastoids are clear. IMPRESSION: 1. No acute intracranial abnormalities. 2. Mild cerebral volume loss and chronic microvascular ischemic changes. Dictated by: Darin Denise M.D. on 07/11/2016 at 15:04 Approved by: Darin Denise M.D. on 07/11/2016 at 15:12 PROCEDURE: X-RAY CHEST, TWO VIEWS ([id number]) INDICATIONS: fever TECHNIQUE: 2 views of the chest were acquired. COMPARISON: None. FINDINGS: Surgical changes and devices: None. Lungs and pleura: No pleural effusions or pneumothorax. Lungs are clear. Slight increased interstitial markings within the infrahilar regions probably are chronic. Mediastinum: Mediastinal contours are normal. Heart size is normal. There may be mild aortic atherosclerosis. Bones and chest wall: No suspicious bony abnormalities. Degenerative changes of the bilateral shoulders and spine are incidentally noted. Soft tissues appear unremarkable. IMPRESSION: No acute cardiopulmonary process is evident. No definite pneumonia or overt heart failure. Dictated by: Robbie Mesa M.D. on 07/11/2016 at 13:27 Approved by: Robbie Mesa M.D. on 07/11/2016 at 13:28 Cardiac Echo Impressions Echocardiogram Report Name: FEDE TAVARES Study Date: 07/12/2016 Height: 66 in Hospital Exam Location: [facility] Weight: 230 lb Gender: Male BSA: 2.1 m2 : 1940 Age: 75 yrs BP: 127/65 mmHg Reason For Study: FEVER, MURMUR Ordering Physician: ELIF CALHOUN Performed By: Anton Galindo Referring Physician: Jennifer MUNOZ Interpretation Summary Left ventricular wall thickness is mildly increased. Left ventricular systolic function is normal without focal wall motion abnormalities. The ejection fraction is estimated to be 60-65%. Assessment of diastolic parameters indicates a relaxation abnormality of the left ventricle, consistent with normal filling pressures. The right ventricle is normal in size and function. The right ventricular systolic pressure is estimated at 31 mmHg assuming a right atrial pressure of 8 mm Hg. The left atrium is severely dilated. The right atrium is mildly dilated. There is mild mitral regurgitation. There is no other significant valvular heart disease. There is no obvious valvular vegetation identified on this exam. The ascending aorta is mildly enlarged. Assessment & Plan Patient is a 75-year-old gentleman who presented to the emergency room with the complaint of weakness and fevers. The patient states that for the last few days he has been feeling weak and has had temperatures from 101F -103F. The patient has also complained of overall generalized weakness. There is a new onset murmur that was found upon exam while in the ER and there are some concerns for possible endocarditis. The patient does have leukocytosis with a white blood cell count of 14.1, brain CT was negative, abdomen CT was negative. Both cardiology and infectious disease were consulted from the ED. SIRS criteria met (present on admission) -Leukocytosis white blood cell count 14.1 -Fever 38.6 -Blood cultures pending -Viral PCR pending -Antibiotics to be held per infectious disease. -Infectious disease consulted (Dr. Munoz) appreciated his time and expertise. Possible endocarditis (present on admission) -We will will obtain more blood cultures off antibiotic. -Stat echo for the morning -Cardiology consulted (Dr. Monge). I discussed with him today and he will consult if needed. -Continue to hold antibiotics for now while we obtain several sets of blood cultures -Continue telemetry Diabetes -Hemoglobin A1c pending -Insulin sliding scale -Accu-Cheks before meals and at bedtime -Hold metformin as patient recently had contrast for imaging studies - Continue gentle hydration secondary to IV contrast and metformin use Hyperlipidemia -Continue home dose of atorvastatin Hypertension -Continue home dose of lisinopril 10 mg daily Facial swelling according to the patient's . -Rule out superior vena cava syndrome -Check CT scan of the neck and chest in AM -We will review all medications with pharmacy Diet: Diabetic Disposition: Patient will be here several days for the evaluation and treatment of the above condition. Pain Evaluation: Adequate Pain Control GI Prophylaxis: Not indicated VTE Prophylaxis: Sub-Q Enoxaparin VTE Mechanical Devices: Intermittant Pneumatic CD Resuscitation Status: CPR: Attempt Resuscitation Alex Gustafson MD July 12, 2016 22:38
[2016-07-13] VITALS (7 sets, daily range): BP systolic 120–161; BP diastolic 60–85; PULSE 62–73; RESP 18–20; O2SAT 94–99
[2016-07-13 01:41] LABS: APPEARANCE,URINE CLEAR (CLEAR,HAZY); COLOR,URINE YELLOW (YELLOW); OCCULT BLOOD,URINE TRACE (NEGATIVE)
--- NOTE | 2016-07-13 02:22 | NUR ---
Periorbital edema Patient's eyes have been swollen throughout shift, gradual increase in swelling. Patient denies itching or change in vision, denies shortness of breath, denies throat tightness, but reported around 0200 that eyes are more difficult to open. Patient is alert and oriented. No swelling noted in mouth or throat. Vital stable, except for earlier fever. Patient's has been very concerned about swelling. Day MD made note of swelling in progress note- new orders for chest and neck CT and IV fluid rate decreased. Family updated on new orders. Night MD paged with patient condition, awaiting call back. Patient and his are currently sleeping. Frequent rounding in place, CPOx monitoring oxygen saturations, 96-97% on room air. Addendum: 07/13/16 at 0243 by ANMOL CHAMBERS RN MD returned call, came to assess patient. New order for IV Benadryl. MD updated patient and his on plan.
--- NOTE | 2016-07-13 03:05 | PROG NOTE ---
[address] [address] PROGRESS NOTE PATIENT: FEDE TAVARES : 1940 MR#: [id number] ADMIT: 07/11/2016 JOB ID: [id number] INFECTIOUS DISEASE NEW CONSULT DATE: 07/12/[address] Meño Callejas for this consult. HISTORY: Yesterday, I was called to the emergency department regarding this patient. Dr. Callejas had seen the patient, who reported basically a three-day history at that point of the abrupt onset of fevers, chills, myalgias, arthralgias, loss of appetite and just generalized malaise. Dr. Callejas heard a significant murmur, which was believed to be new and called me because he believed the patient may have endocarditis. I recommended drawing three blood cultures and withholding antibiotics unless the patient was critically ill. The patient was subsequently admitted to the [facility], and today, additional blood cultures were drawn. The patient reports that he continues to feel about the way he did when he came to the ED and sought evaluation in that he continues to have anorexia, nausea without vomiting, malaise, fatigue, and some fever. He denies really any and all focal complaints. He says he has no sore throat, sinus pain, confusion, stiff neck, cough, chest pain, shortness of breath. No vomiting, diarrhea, dysuria, focal bone or muscle pain. Since admission, the patient and his family notice that his whole face has become somewhat erythematous and swollen. His showed me pictures, and this does indeed appear to be the case. They state that this facial swelling really started after he was admitted to the hospital, and they wonder if it could be due to the insulin as normally he takes only metformin for his diabetes. PAST MEDICAL HISTORY: 1. Diabetes mellitus controlled with metformin. 2. Hypertension. 3. Hyperlipidemia. SOCIAL HISTORY: The patient was, in the distant past, a significant smoker and drinker, but he quit smoking about five years ago and quit drinking heavily at least about 25 years ago. He does not use illicit drugs and is a retired salmon showroom salesperson. FAMILY HISTORY: Negative for tuberculosis in first- and second-degree relatives. REVIEW OF SYSTEMS: The review of systems was done. As noted, the patient has no headache, no change in vision. No sore throat or trouble swallowing. He has not had any significant cough or shortness of breath. No pleuritic or substernal chest pain. He has had anorexia now for four days and some nausea but without vomiting or diarrhea. No dysuria, urgency, or frequency. No swelling of the joints, though there have been some arthralgias. In general, he has felt profoundly weak throughout his body. No particular swelling of the lower extremities. No pain in any one area of the body that he is able the localize. The patient has no past history of any similar problem as he can remember. Rest of ROs is negative PHYSICAL EXAMINATION: Physical exam reveals an afebrile gentleman, temperature 36.5, pulse 75, respiratory rate 18, blood pressure 129/69. He is saturating 93% on room air. He is in no acute distress. Examination of the head reveals no examination head is quite abnormal when compared to the pictures that his has on her cell phone. His face is grossly swollen with diffuse erythema and almost a sensation of fullness in his cheeks. His lips are not, however, swollen. The oropharynx does not appear abnormal, and there is no erythema or exudate. No thrush or hairy leukoplakia is noted. The eyes are rather slit-like because of the swelling, but there is no conjunctivitis or scleral icterus. Extraocular movements are intact. Nose normal. Neck supple without adenopathy. Lungs quite clear bilaterally. Cardiac tones with a 2/6 systolic murmur heard best along the left lower sternal border. The abdomen is without hepatosplenomegaly or tenderness. The patient does not have a Zazueta catheter. There is no suprapubic swelling. No inguinal adenopathy. Examination of the extremities reveals no significant edema. No tenderness, synovitis, cellulitis, or skin breakdown. The patient's joints are without evidence of synovitis, and he appears to have full range of motion, though he is very weak at this point. Neurologically, as noted, the patient is quite intact except for some peripheral neuropathy. LABORATORIES: Labs include white blood count 14,000 yesterday, 11,000 today, platelet count approximately 200,000 both days. Differential on yesterday's white count when he was in the ER, 84% segs. Creatinine is 0.69. LFTs entirely normal. Hemoglobin A1c is striking 12.4. Lactic acid 1.7. Albumin 2.9, procalcitonin 0.29. Urine: White cells 0-5, blood cultures times three sets are pending and they are all negative. Respiratory viral PCR panel negative. IMAGING: Includes an abdominal CT scan, which showed no acute abnormality in the abdomen or the pelvis. There were no abnormalities of the bowel, liver, spleen or any other notable finding except the absence of a gallbladder which was known from the history. Additionally, the patient had a brain CT which basically negative and a chest x-ray, which was normal. IMPRESSION: This is a somewhat mysterious case of a gentleman admitted with now four days of fevers, chills, malaise, weakness, and really nothing focal. Since admission, strangely enough, he has developed erythema and swelling of his face, which suggests a drug reaction. He is on lisinopril here, but the patient's says unequivocally, he takes lisinopril at home. It is one of his few medicines he takes there. He does take metformin at home and here has been transitioned to insulin because of very poor hemoglobin A1c levels. I spoke to the pharmacist, and occasionally these sorts of reactions can be seen with lispro insulin but it is quite unusual. At this point, I think it is unlikely that he has a significant bacterial process and even less likely he has endocarditis; but it is certainly not yet ruled out as we await his blood cultures and other data. RECOMMENDATIONS: 1. After discussion with Dr. Gustafson, I think it is reasonable to hold off on antibiotics at this time. 2. Will check a procalcitonin tomorrow. 3. We await additional developments with this case, and I plan to discuss with Dr. Gustafson, the possibility that he is having a reaction to his lispro insulin causing his rather angioedemic appearance. Thank you very much for allowing me to see this patient in consult. SHABBIR
[2016-07-13 05:40] LABS: BASOPHILS % (AUTO) 0.2 % (0-3); EOSINOPHILS % (AUTO) 0.9 % (0-5); MONOCYTES % (AUTO) 11.5 % (4-12); Mean Corpuscular Hemoglobin 29.6 pg (27.0-35.0); Mean Corpuscular Volume 86.4 fL (81-100); NEUTROPHILS % (AUTO) 67.7 % (40-74); Platelet Count 192 bil/L (150-400)
[2016-07-13 06:04] LABS: ERYTHROCYTE SEDIMENTATION RATE 63 mm/hr (0-30)
[2016-07-13 06:40] LABS: Magnesium 1.8 mg/dL (1.6-2.6)
[2016-07-13] MEDS: Insulin LISPRO 300 Unit/3 mL Inj SUBQ SCH ×4 (09:57→20:40)
--- NOTE | 2016-07-13 09:58 | NUR ---
Hyperglycemia and Insulin Blood sugar approx 0500 was 187. At approx 0930 blood sugar 232 even before eating breakfast. Spouse verbalizing concern with patient taking insulin due to possibility of being allergic. MD notified and orders received to not give insulin. Patient and spouse notified.
--- NOTE | 2016-07-13 10:33 | DRSVH ---
PROCEDURE: CT NECK/CHEST W CONTRAST ([id number]) INDICATIONS: possible superior vena cava syndrome/fever of unkn TECHNIQUE: After the administration of intravenous contrast, 3 mm thick sections acquired from the skull base to the thoracic inlet, with additional 3 mm thick oblique sections through the pharynx and 3 mm thick c oronal reformats. 5 mm thick axial sections acquired from the pulmonary apices to the posterior cost ophrenic angles, with 7 mm thick coronal and sagittal MIP reformats. For radiation dose reduction, t he following was used: automated exposure control, adjustment of mA and/or kV according to patient s ize. COMPARISON: None. FINDINGS: Image quality: Excellent. NECK: Lymph nodes: No enlarged nodes seen throughout the neck. Vessels: Visualized vasculature appears patent. Atherosclerotic calcifications noted in the origins of the internal carotid arteries which cause less than 50% stenosis of the vessels. Internal jugular veins demonstrate normal postcontrast enhancement. Neck spaces: The oropharynx, nasopharynx, and pharynx demonstrate no mucosal lesions. The vocal cor ds, false vocal cords, pyriform sinuses, epiglottis, vallecula, and tongue base all appear normal. E xtramucosal spaces appear normal. Glands: The parotid and submandibular salivary glands are normal in size and enhancement. Thyroid g land is within normal limits. Miscellaneous: Visualized inferior brain enhances normally. Orbits appear normal. Mild stranding no francisca throughout the subcutaneous fat of the visualized face and the neck soft tissues compatible with nonspecific soft tissue at edema. 1 cm hypoattenuating lesion noted in the cutaneous/subcutaneous sof t tissues of the left malar eminence of the face and in the posterior-lateral right upper neck soft t issues may represent sebaceous cysts. Visualized sinuses and mastoids are clear. Spine degenerative d isc disease and facet arthropathy. CHEST: Lungs and pleura: No acute pulmonary opacities. No pleural effusions or pneumothorax. Central and peripheral airways are patent and normal in caliber. Mediastinum: Heart size is normal. Atherosclerotic calcifications are noted in the aorta, great ves sels and the coronary vasculature. No pericardial effusion. No mediastinal or hilar adenopathy by si ze criteria. Thoracic aorta and central pulmonary arteries are normal in size. There is normal contr ast opacification the superior vena cava. No mass effect identified on the superior vena cava. Esopha bernie is normal in caliber. No hiatal hernia. Chest wall: No axillary or supraclavicular adenopathy by CT size criteria. Bones: No suspicious bony lesions. Abdomen: The gallbladder is surgically absent. Small cyst noted in the left lobe of the liver. Visua lized upper abdominal solid organs and bowel loops appear normal. IMPRESSION: 1. No evidence of superior vena cava obstruction or narrowing. 2. Extensive, nonspecific, mild soft tissue edema involving the neck and visualized facial soft tissu es. 3. No abscess. 4. No lymphadenopathy based on size criteria. 5. Atherosclerosis including the coronary vasculature. Dictated by: Shirin Worthington MD, PhD on 07/13/2016 at 10:14 Approved by: Shirin Worthington MD, PhD on 07/13/2016 at 10:31
--- NOTE | 2016-07-13 17:35 | NUR ---
Edema Patient feels that periorbital edema is improving. Face remains swollen yet improving as time goes on. No insulin given entire shift.
--- NOTE | 2016-07-13 23:13 | PCM.PNMED ---
Subjective Date of Service July 13, 2016 Subjective Patient complains of facial swelling. However, he states he is feeling better and this afternoon the facial swelling is beginning to improve slightly. Patient has been eating well and drinking well. Feeling much better than he did when he came in. He did have fever last evening. However, the fever is better than it was when he came in. Exam Vital Signs Vital Sign - Last Date Time Temp Pulse Resp B/P Pulse Ox O2 Delivery O2 Flow Rate FiO2 07/13/16 20:07 37.5 62 20 137/69 94 Room Air Intake and Output 07/12/16 07/12/16 07/13/16 Cumulative From/Thru 15:00 23:00 07:00 07/11/16 13:31 - 07/13/16 03:32 Intake Total 525 ml 1872 ml 1002 ml 5555 ml Output Total 900 ml 1072 ml 2122 ml Balance -375 ml 800 ml 1002 ml 3433 ml Intake Oral 525 ml 772 ml 1297 ml IV Total 1100 ml 1002 ml 4258 ml Output Urine Total 900 ml 1072 ml 2122 ml # Voids 3 4 # Bowel Movements 0 0 Exam General: The patient is in no apparent distress. He is sitting up in a bedside chair. HEENT: Head is atraumatic and normocephalic. However, his face is more swollen and edematous today. Eyes: There is periorbital edema. Pupils are equally round and reactive to light and accommodation. Extraocular muscles are intact. Sclera are white, anicteric. Subconjunctival mucosa is pink. Ears and nose are unremarkable. Oropharynx: There are no mucosal lesions, there is no thrush , there is no pharyngitis. Neck: Is supple, there are no nodes, or masses or tenderness. Chest: Is clear to auscultation and percussion. There are no rales, rhonchi, wheezes or rubs. Heart: Rate, rhythm is regular. There is a grade 2/6 systolic ejection murmur heard best at the left sternal border. Abdomen: Good bowel sounds are present. Abdomen is soft, nontender, no organomegaly or masses were appreciated. Extremities: Are symmetrical and well perfused. There is no edema, there is no cellulitis, no rash. Neurologic: There are no focal neurological deficits. Cranial nerves II through XII are intact. There are no sensory or motor deficits. Psychiatric: Patients mood is calm and he shows no sign of agitation. Genital: Deferred Rectal: Deferred Lab and Diagnostics Result Diagram: 07/13/1651907/13/16519 X-Rays, CTs and MRIs PROCEDURE: CT ABDOMEN AND PELVIS WITH CONTRAST ([id number]) INDICATIONS: fever TECHNIQUE: After the administration of intravenous contrast, 5 mm thick sections acquired from the diaphragm to the symphysis. 5 mm coronal and sagittal reformats were acquired. For radiation dose reduction, the following was used: automated exposure control, adjustment of mA and/or kV according to patient size. COMPARISON: None. FINDINGS: Image quality: Diagnostic. ABDOMEN: Lung bases: Lung bases are clear. Heart size is normal. Solid organs: The gallbladder is surgically absent. Mild intrahepatic biliary dilatation is present with the common bile duct is prominent in size then noted to measure up to approximately 9 mm in diameter. The liver demonstrates a small hepatic cyst along the anterior margin of the medial left hepatic lobe. The spleen, adrenals, and kidneys are within normal limits. A few small cysts probably are present involving the left kidney. No solid renal lesions are appreciated. There is no hydronephrosis. Subtle calcifications within the pancreas are noted. The pancreas is otherwise unremarkable. No peripancreatic inflammation is identified. Peritoneum and bowel: The stomach, duodenum, and remainder of the small bowel loops are nondilated. Moderate residual stool is seen within the colon. There is no bowel obstruction. No mesenteric inflammation is evident. There is no free fluid, loculated fluid collection or free air. Nodes and vessels: No retroperitoneal or mesenteric adenopathy by size criteria. Aorta and inferior vena cava are normal in size. Aortic and iliac artery atherosclerosis is present. Miscellaneous and bones: No ventral hernias. Moderate to severe multilevel degenerative changes of the imaged thoracolumbar spine are present. No acute fractures or suspicious osseous lesions are present. PELVIS: Genitourinary: Bladder wall thickness is normal. The prostate is not enlarged. Coarse calcifications within the prostate are noted. The ureters are nondilated. Miscellaneous: No inguinal hernias or adenopathy. No free fluid, loculated fluid collection or free air is evident. Bones: No suspicious bony lesions. No acute pelvic fractures are evident. There are severe degenerative changes of the bilateral hips. Calcifications involving the proximal bilateral hamstrings tendons may be related to calcific tendinitis or chronic partial-thickness injuries. Severe degenerative changes of the sacroiliac joints are also present. IMPRESSION: 1. No acute abnormality is evident within the abdomen or pelvis. 2. No bowel obstruction or bowel inflammation. 3. Mild enlargement of the common bile duct probably is within normal limits for this patient, given the prior cholecystectomy. If the patient's liver function tests are persistently elevated and/or increasing, MRCP may be helpful to exclude the possibility of a small stone within the common bile duct. 4. Prominent degenerative changes of the lumbosacral spine and hips. Dictated by: Robbie Mesa M.D. on 07/11/2016 at 14:15 Approved by: Robbie Mesa M.D. on 07/11/2016 at 14:21 PROCEDURE: CT BRAIN WITHOUT CONTRAST ([id number]) INDICATIONS: 75-year-old man with weakness. TECHNIQUE: Noncontrast 4.5 mm thick angled axial sections acquired from the foramen magnum to the vertex, with coronal reformats. COMPARISON: None. FINDINGS: Image quality: Excellent. CSF spaces: Basal cisterns are patent. No extra-axial fluid collections. The ventricles are symmetric in size and shape. Brain: No intracranial bleeds or masses. There is moderate cerebral volume loss for age, with resultant sulcal prominence, most pronounced in frontal lobes bilaterally. There are mild periventricular and deep white matter chronic small vessel ischemic changes. There is intracranial internal carotid artery atherosclerosis. Skull and face: Calvarium and visualized facial bones appear intact, without suspicious lesions. Sinuses: Visualized sinuses and mastoids are clear. IMPRESSION: 1. No acute intracranial abnormalities. 2. Mild cerebral volume loss and chronic microvascular ischemic changes. Dictated by: Darin Denise M.D. on 07/11/2016 at 15:04 Approved by: Darin Denise M.D. on 07/11/2016 at 15:12 PROCEDURE: X-RAY CHEST, TWO VIEWS ([id number]) INDICATIONS: fever TECHNIQUE: 2 views of the chest were acquired. COMPARISON: None. FINDINGS: Surgical changes and devices: None. Lungs and pleura: No pleural effusions or pneumothorax. Lungs are clear. Slight increased interstitial markings within the infrahilar regions probably are chronic. Mediastinum: Mediastinal contours are normal. Heart size is normal. There may be mild aortic atherosclerosis. Bones and chest wall: No suspicious bony abnormalities. Degenerative changes of the bilateral shoulders and spine are incidentally noted. Soft tissues appear unremarkable. IMPRESSION: No acute cardiopulmonary process is evident. No definite pneumonia or overt heart failure. Dictated by: Robbie Mesa M.D. on 07/11/2016 at 13:27 Approved by: Robbie Mesa M.D. on 07/11/2016 at 13:28 Cardiac Echo Impressions Echocardiogram Report Name: FEDE TAVARES Study Date: 07/12/2016 Height: 66 in Hospital Exam Location: [facility] Weight: 230 lb Gender: Male BSA: 2.1 m2 : 1940 Age: 75 yrs BP: 127/65 mmHg Reason For Study: FEVER, MURMUR Ordering Physician: ELIF CALHOUN Performed By: Anton Galindo Referring Physician: Jennifer MUNOZ Interpretation Summary Left ventricular wall thickness is mildly increased. Left ventricular systolic function is normal without focal wall motion abnormalities. The ejection fraction is estimated to be 60-65%. Assessment of diastolic parameters indicates a relaxation abnormality of the left ventricle, consistent with normal filling pressures. The right ventricle is normal in size and function. The right ventricular systolic pressure is estimated at 31 mmHg assuming a right atrial pressure of 8 mm Hg. The left atrium is severely dilated. The right atrium is mildly dilated. There is mild mitral regurgitation. There is no other significant valvular heart disease. There is no obvious valvular vegetation identified on this exam. The ascending aorta is mildly enlarged. Assessment & Plan Patient is a 75-year-old gentleman who presented to the emergency room with the complaint of weakness and fevers. The patient states that for the last few days he has been feeling weak and has had temperatures from 101F -103F. The patient has also complained of overall generalized weakness. There is a new onset murmur that was found upon exam while in the ER and there are some concerns for possible endocarditis. The patient does have leukocytosis with a white blood cell count of 14.1, brain CT was negative, abdomen CT was negative. Both cardiology and infectious disease were consulted from the ED. SIRS criteria met (present on admission) -Leukocytosis white blood cell count 14.1 -Fever up to 38.5 last evening. However today patient is afebrile -Blood cultures pending, but negative so far. -Viral PCR is negative -Antibiotics to be held per infectious disease. -Infectious disease consulted (Dr. Munoz) appreciated his time and expertise. I have discussed case at length with him today. Possible endocarditis (present on admission) -We have obtained more blood cultures off antibiotic. -Echocardiogram fails to reveal source of fever -Cardiology consulted (Dr. Monge). I discussed with him and he will consult if needed. -Continue to hold antibiotics for now while we await results of several sets of blood cultures -Continue telemetry Diabetes -Hemoglobin A1c pending -Insulin sliding scale -Accu-Cheks before meals and at bedtime -Hold metformin as patient recently had contrast for imaging studies - Continue gentle hydration secondary to IV contrast and metformin use Hyperlipidemia -Continue home dose of atorvastatin Hypertension -Continue home dose of lisinopril 10 mg daily Facial swelling according to the patient's . -Rule out superior vena cava syndrome -Check CT scan of the neck and chest today. -We will review all medications with pharmacy Diet: Diabetic Disposition: Patient will be here a few more days for the evaluation and treatment of the above condition. Pain Evaluation: Adequate Pain Control GI Prophylaxis: Not indicated VTE Prophylaxis: Sub-Q Enoxaparin VTE Mechanical Devices: Intermittant Pneumatic CD Resuscitation Status: CPR: Attempt Resuscitation Sj,Alex Rivero MD July 13, 2016 23:13
[2016-07-14] VITALS (8 sets, daily range): BP systolic 123–166; BP diastolic 62–83; PULSE 59–70; RESP 18–22; O2SAT 94–99
--- NOTE | 2016-07-14 04:26 | NUR ---
PT ACTIVITY Pt has slept intermittently on shift. Pt has been up in chair and uses urinal at bedside, w/ SBA. No c/o pain. Pt has been afebrile. Continue to monitor. Call light in reach. Family/friend in room. Intentional rounding.
--- NOTE | 2016-07-14 05:17 | PROG NOTE ---
[address] [address] PROGRESS NOTE PATIENT: FEDE TAVARES : 1940 MR#: [id number] ADMIT: 07/11/2016 JOB ID: [id number] DATE: 07/13/2016 INFECTIOUS DISEASE FOLLOWUP NOTE: REASON FOR FOLLOWUP: Fever of unknown origin with facial flushing and edema. INTERVAL HISTORY: Overnight, the patient reports that in general he has felt better, though he did have some additional fevers without significant chills. He has no significant sore throat, cough, or shortness of breath. He notes his face is still red and swollen almost to the point that when he woke up this morning his eyes were almost closed, though they have improved through the day. No significant nausea, vomiting, or diarrhea. He is hungry but eating very little so far. In the additional history department, the patient does note that he has a broken off, rotten lower incisor. He said that has been there for about a year and is not especially painful or worse than it was in the past. PHYSICAL EXAMINATION: Reveals a gentleman who is afebrile today but did spike up to 38.5 late last night. His pulse is 70, respiratory rate 18, blood pressure 131/75. He is saturating well on room air. He is awake, alert, making jokes, in no distress. His face is still erythematous and swollen diffusely especially compared to the pictures that his family has of him when he was healthy. His eyes do not have conjunctivitis or scleral icterus. His oral cavity is unremarkable. His lungs are relatively clear without wheezing. Cardiac tones with 2/6 murmur consistent with mitral regurgitation murmur. Abdomen soft, nontender, without organomegaly. LABORATORY DATA: His labs include white count of 11,300. Sed rate 63. LFT are normal. Procalcitonin was last 0.23. Urinalysis without white cells. Bartonella and Q fever serologies are pending. Ten blood culture bottles are negative at this point. Respiratory viral PCR negative. IMAGING: Additional imaging includes a neck CT that was done. It shows no evidence of SVC abnormality. There is mild nonspecific soft tissue edema involving the neck and face. No abscess or lymphadenopathy are noted. The abdominal CT scan shows no bowel obstruction. There is mild enlargement of the common bile duct related to prior cholecystectomy, presumably. IMPRESSION: This remains a fairly mysterious case of a reasonably healthy gentleman with diabetes who now has about five days of fever, chills, malaise and weakness, and some facial erythema and swelling, which began after admission. It is our impression that the facial swelling or edema may be due to the preparation of insulin he was started on after admission which is his only new drug or preparation. At this point, we are unclear what the primary cause of his fever is. We have a transthoracic echo which is not too impressive, though it does show mild mitral regurgitation but no valvular vegetation or anything else other than a dilated left atrium. RECOMMENDATIONS: 1. After discussion with Dr. Gustafson of the hospitalist service, we have both concluded that antibiotics are not indicated at this time. 2. Will wait on our 10 blood culture bottles. The technology used at our hospital is reasonably good at identifying HACEK organisms in blood cultures but the possibility of a culture negative endocarditis does still exist, so will check Q fever and bartonella serologies. 3. Will continue to closely observe this patient going forward, and I would obtain additional blood cultures should he spike additional fevers tonight. 4. Will continue to follow this patient with you.
[2016-07-14 06:12] LABS: BASOPHILS % (AUTO) 0.7 % (0-3); EOSINOPHILS % (AUTO) 2.6 % (0-5); MONOCYTES % (AUTO) 10.3 % (4-12); Mean Corpuscular Hemoglobin 29.1 pg (27.0-35.0); NEUTROPHILS % (AUTO) 59.5 % (40-74); Platelet Count 221 bil/L (150-400)
[2016-07-14 06:28] LABS: Magnesium 1.7 mg/dL (1.6-2.6)
[2016-07-14] MEDS: Insulin LISPRO 300 Unit/3 mL Inj SUBQ SCH (08:00)
[2016-07-14] MEDS ORDERED: Magnesium Sulf 4 Gm/100 mL H2O 4 GM in IV Premix 1 EACH IV ONE (08:40)
--- NOTE | 2016-07-14 15:32 | NUR ---
Social Work: Continued Discharge Planning D: EMR reviewed. Pt is on day 3 of hospitalization. SW met with pt and family at bedside and confirmed pt's PCP is Elise Zafar at [facility] in [place]. SW confirmed that pt's spouse Courtney Childs ([phone]) will provide transport home via POV when pt is medically stable. SW reviewed EMR and does not anticipate any discharge needs at this time. SW will continue to follow for any discharge needs that may arise. A: Pt who is independent at baseline. P: Pt to transport home with spouse via POV when medically stable. SW will continue to follow if discharge needs arise. NOEL Doyle
[2016-07-14] MEDS: Insulin Human REGular 300 Unit/3 mL Inj SUBQ SCH ×2 (17:27→21:02)
--- NOTE | 2016-07-14 17:28 | NUR ---
BG/Diabetic Education Pt BG levels 250-310 today before meals; pt encouraged by MD and RN to ambulate more around the unit. Pt up to BS with all meals today in chair and ambulating with steady gait around unit. Diabetic teaching done at meal times; pt starting to recognize healthy carbs and carbs from proteins on meal trays. Diabetes education booklet given today. Will continue to encourage and monitor patient with frequent rounds.
--- NOTE | 2016-07-14 21:49 | PCM.PNMED ---
Subjective Date of Service July 14, 2016 Subjective Patient is feeling much better. He had no fever last evening or this morning. His facial swelling is improved. However he is getting some peeling of the skin. The periorbital edema looks slightly erythematous and this may be due to peeling of skin and him rubbing his periorbital areas he states that the periorbital areas do not actually it is however there is sensation due to the edema that makes him want to rub them. Patient has no other new complaints. He has no nausea, no vomiting no diarrhea Exam Vital Signs Vital Sign - Last Date Time Temp Pulse Resp B/P Pulse Ox O2 Delivery O2 Flow Rate FiO2 07/14/16 20:31 36.6 63 20 155/83 99 Room Air Intake and Output 07/13/16 07/13/16 07/14/16 Cumulative From/Thru 15:00 23:00 07:00 07/11/16 13:31 - 07/14/16 06:44 Intake Total 1239 ml 1155 ml 550 ml 8499 ml Output Total 2175 ml 1150 ml 900 ml 6347 ml Balance -936 ml 5 ml -350 ml 2152 ml Intake Oral 700 ml 1155 ml 550 ml 3702 ml IV Total 539 ml 4797 ml Output Urine Total 2175 ml 1150 ml 900 ml 6347 ml # Voids 4 # Bowel Movements 0 Exam General: The patient is in no apparent distress. He is sitting up in a bedside chair. HEENT: Head is atraumatic and normocephalic. However, his face is less swollen and edematous today. Eyes: The periorbital edema has improved. Pupils are equally round and reactive to light and accommodation. Extraocular muscles are intact. Sclera are white, anicteric. Subconjunctival mucosa is pink. Ears and nose are unremarkable. Oropharynx: There are no mucosal lesions, there is no thrush, there is no pharyngitis. Neck: Is supple, there are no nodes, or masses or tenderness. Chest: Is clear to auscultation and percussion. There are no rales, rhonchi, wheezes or rubs. Heart: Rate, rhythm is regular. There is a grade 2/6 systolic ejection murmur heard best at the left sternal border. Abdomen: Good bowel sounds are present. Abdomen is soft, nontender, no organomegaly or masses were appreciated. Extremities: Are symmetrical and well perfused. There is no edema, there is no cellulitis, no rash. Neurologic: There are no focal neurological deficits. Cranial nerves II through XII are intact. There are no sensory or motor deficits. Psychiatric: Patients mood is calm and he shows no sign of agitation. Genital: Deferred Rectal: Deferred Lab and Diagnostics Result Diagram: 07/14/1653407/14/16534 X-Rays, CTs and MRIs PROCEDURE: CT ABDOMEN AND PELVIS WITH CONTRAST ([id number]) INDICATIONS: fever TECHNIQUE: After the administration of intravenous contrast, 5 mm thick sections acquired from the diaphragm to the symphysis. 5 mm coronal and sagittal reformats were acquired. For radiation dose reduction, the following was used: automated exposure control, adjustment of mA and/or kV according to patient size. COMPARISON: None. FINDINGS: Image quality: Diagnostic. ABDOMEN: Lung bases: Lung bases are clear. Heart size is normal. Solid organs: The gallbladder is surgically absent. Mild intrahepatic biliary dilatation is present with the common bile duct is prominent in size then noted to measure up to approximately 9 mm in diameter. The liver demonstrates a small hepatic cyst along the anterior margin of the medial left hepatic lobe. The spleen, adrenals, and kidneys are within normal limits. A few small cysts probably are present involving the left kidney. No solid renal lesions are appreciated. There is no hydronephrosis. Subtle calcifications within the pancreas are noted. The pancreas is otherwise unremarkable. No peripancreatic inflammation is identified. Peritoneum and bowel: The stomach, duodenum, and remainder of the small bowel loops are nondilated. Moderate residual stool is seen within the colon. There is no bowel obstruction. No mesenteric inflammation is evident. There is no free fluid, loculated fluid collection or free air. Nodes and vessels: No retroperitoneal or mesenteric adenopathy by size criteria. Aorta and inferior vena cava are normal in size. Aortic and iliac artery atherosclerosis is present. Miscellaneous and bones: No ventral hernias. Moderate to severe multilevel degenerative changes of the imaged thoracolumbar spine are present. No acute fractures or suspicious osseous lesions are present. PELVIS: Genitourinary: Bladder wall thickness is normal. The prostate is not enlarged. Coarse calcifications within the prostate are noted. The ureters are nondilated. Miscellaneous: No inguinal hernias or adenopathy. No free fluid, loculated fluid collection or free air is evident. Bones: No suspicious bony lesions. No acute pelvic fractures are evident. There are severe degenerative changes of the bilateral hips. Calcifications involving the proximal bilateral hamstrings tendons may be related to calcific tendinitis or chronic partial-thickness injuries. Severe degenerative changes of the sacroiliac joints are also present. IMPRESSION: 1. No acute abnormality is evident within the abdomen or pelvis. 2. No bowel obstruction or bowel inflammation. 3. Mild enlargement of the common bile duct probably is within normal limits for this patient, given the prior cholecystectomy. If the patient's liver function tests are persistently elevated and/or increasing, MRCP may be helpful to exclude the possibility of a small stone within the common bile duct. 4. Prominent degenerative changes of the lumbosacral spine and hips. Dictated by: Robbie Mesa M.D. on 07/11/2016 at 14:15 Approved by: Robbie Mesa M.D. on 07/11/2016 at 14:21 PROCEDURE: CT BRAIN WITHOUT CONTRAST ([id number]) INDICATIONS: 75-year-old man with weakness. TECHNIQUE: Noncontrast 4.5 mm thick angled axial sections acquired from the foramen magnum to the vertex, with coronal reformats. COMPARISON: None. FINDINGS: Image quality: Excellent. CSF spaces: Basal cisterns are patent. No extra-axial fluid collections. The ventricles are symmetric in size and shape. Brain: No intracranial bleeds or masses. There is moderate cerebral volume loss for age, with resultant sulcal prominence, most pronounced in frontal lobes bilaterally. There are mild periventricular and deep white matter chronic small vessel ischemic changes. There is intracranial internal carotid artery atherosclerosis. Skull and face: Calvarium and visualized facial bones appear intact, without suspicious lesions. Sinuses: Visualized sinuses and mastoids are clear. IMPRESSION: 1. No acute intracranial abnormalities. 2. Mild cerebral volume loss and chronic microvascular ischemic changes. Dictated by: Darin Denise M.D. on 07/11/2016 at 15:04 Approved by: Darin Denise M.D. on 07/11/2016 at 15:12 PROCEDURE: X-RAY CHEST, TWO VIEWS ([id number]) INDICATIONS: fever TECHNIQUE: 2 views of the chest were acquired. COMPARISON: None. FINDINGS: Surgical changes and devices: None. Lungs and pleura: No pleural effusions or pneumothorax. Lungs are clear. Slight increased interstitial markings within the infrahilar regions probably are chronic. Mediastinum: Mediastinal contours are normal. Heart size is normal. There may be mild aortic atherosclerosis. Bones and chest wall: No suspicious bony abnormalities. Degenerative changes of the bilateral shoulders and spine are incidentally noted. Soft tissues appear unremarkable. IMPRESSION: No acute cardiopulmonary process is evident. No definite pneumonia or overt heart failure. Dictated by: Robbie Mesa M.D. on 07/11/2016 at 13:27 Approved by: Robbie Mesa M.D. on 07/11/2016 at 13:28 Cardiac Echo Impressions Echocardiogram Report Name: FEDE TAVARES Study Date: 07/12/2016 Height: 66 in Hospital Exam Location: [facility] Weight: 230 lb Gender: Male BSA: 2.1 m2 : 1940 Age: 75 yrs BP: 127/65 mmHg Reason For Study: FEVER, MURMUR Ordering Physician: ELIF TEAM Performed By: Anton Galindo Referring Physician: Jennifer MUNOZ Interpretation Summary Left ventricular wall thickness is mildly increased. Left ventricular systolic function is normal without focal wall motion abnormalities. The ejection fraction is estimated to be 60-65%. Assessment of diastolic parameters indicates a relaxation abnormality of the left ventricle, consistent with normal filling pressures. The right ventricle is normal in size and function. The right ventricular systolic pressure is estimated at 31 mmHg assuming a right atrial pressure of 8 mm Hg. The left atrium is severely dilated. The right atrium is mildly dilated. There is mild mitral regurgitation. There is no other significant valvular heart disease. There is no obvious valvular vegetation identified on this exam. The ascending aorta is mildly enlarged. Assessment & Plan Patient is a 75-year-old gentleman who presented to the emergency room with the complaint of weakness and fevers. The patient states that for the last few days he has been feeling weak and has had temperatures from 101F -103F. The patient has also complained of overall generalized weakness. There is a new onset murmur that was found upon exam while in the ER and there are some concerns for possible endocarditis. The patient does have leukocytosis with a white blood cell count of 14.1, brain CT was negative, abdomen CT was negative. Both cardiology and infectious disease were consulted from the ED. SIRS criteria met (present on admission) -Leukocytosis white blood cell count 14.1 -Fever up to 38.5 last evening. However today patient is afebrile -Blood cultures pending, but negative so far. -Viral PCR is negative -Antibiotics to be held per infectious disease. -Infectious disease consulted (Dr. Munoz) appreciated his time and expertise. I have discussed case at length with him today. Possible endocarditis (present on admission) -We have obtained more blood cultures off antibiotic. -Echocardiogram fails to reveal source of fever -Cardiology consulted (Dr. Monge). I discussed with him and he will consult if needed. -Continue to hold antibiotics for now while we await results of several sets of blood cultures. Dr. Munoz believes that are lab will be able to detect HACEK group organisms. He has also ordered Bartonella and Q fever serologies -Dr. Munoz's time and expertise is appreciated -Continue telemetry monitoring for now Diabetes -Hemoglobin A1c is markedly elevated at 12.4 -Insulin sliding scale -Accu-Cheks before meals and at bedtime -We will continue to hold metformin as patient recently had contrast for imaging studies. -We will start regular insulin. -IV fluids, given to protect kidneys from IV contrast used, has been discontinued as patient is eating and drinking well. 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 Will consider nephrology consultation as this may be helpful for the patient's preservation of renal function in the future. Due to his poor diabetic control. -Continue to monitor. Diet: Diabetic Disposition: Patient will be here another 24-48 hours for the evaluation and treatment of the above condition. Pain Evaluation: Adequate Pain Control GI Prophylaxis: Not indicated VTE Prophylaxis: Sub-Q Enoxaparin VTE Mechanical Devices: Intermittant Pneumatic CD Resuscitation Status: CPR: Attempt Resuscitation Alex Gustafson MD July 14, 2016 21:49
[2016-07-15] VITALS (9 sets, daily range): BP systolic 129–160; BP diastolic 72–91; PULSE 58–67; RESP 18–20; O2SAT 96–99
--- NOTE | 2016-07-15 05:00 | NUR ---
Noc activity Pt is has been pleasant and cooperative with care. Denies chest pain, sob, n/v or abd discomfort. Telemetry noted no abnormal ectopy. Administered regular insulin as per sliding scale. No allergic reaction observed. VSS and has been afebrile overnight. Hourly rounding in effect.
[2016-07-15 05:01] LABS: APPEARANCE,URINE CLEAR (CLEAR,HAZY); COLOR,URINE YELLOW (YELLOW); OCCULT BLOOD,URINE NEGATIVE (NEGATIVE)
[2016-07-15 06:52] LABS: BASOPHILS % (AUTO) 0.2 % (0-3); MONOCYTES % (AUTO) 9.5 % (4-12); Mean Corpuscular Hemoglobin 29.4 pg (27.0-35.0); Mean Corpuscular Volume 86.6 fL (81-100); NEUTROPHILS % (AUTO) 61.7 % (40-74); Platelet Count 260 bil/L (150-400)
[2016-07-15 07:44] LABS: ERYTHROCYTE SEDIMENTATION RATE 60 mm/hr (0-30)
[2016-07-15] MEDS: Insulin Human REGular 300 Unit/3 mL Inj SUBQ SCH ×4 (08:33→20:53)
[2016-07-15 08:45] LABS: Magnesium 1.6 mg/dL (1.6-2.6)
--- NOTE | 2016-07-15 10:06 | NUR ---
AIDE signed by pt
--- NOTE | 2016-07-15 10:07 | NUR ---
Social Work: Readiness for Discharge D: EMR reviewed. Pt is on day 4 of hospitalization and will likely discharge home tomorrow per MD. SW confirmed that pt's spouse Courtney Childs ([phone]) will provide transport home via POV when pt is medically stable. SW reviewed EMR and does not anticipate any discharge needs at this time. SW will continue to follow for any discharge needs that may arise. A: Pt who is independent at baseline. P: Pt to transport home with spouse via POV when medically stable. SW will continue to follow if discharge needs arise. NOEL Doyle
--- NOTE | 2016-07-15 15:22 | PROG NOTE ---
[address] [address] PROGRESS NOTE PATIENT: FEDE TAVARES : 1940 MR#: [id number] ADMIT: 07/11/2016 JOB ID: [id number] DATE: 07/15/2016 REASON FOR FOLLOWUP: Possible systemic infection. INTERVAL HISTORY: Over the past couple days the patient has been free of fevers, chills, or sweats. His facial swelling has improved considerably and he has no shortness of breath or chest pain. Overall though, he still feels weak and sluggish compared to his baseline. PHYSICAL EXAMINATION: Reveals a consistently afebrile gentleman. Recall that early in his hospital stay from July 11 through late on July 12, he did have recurrent spiking fevers which have now completely resolved for the past almost three days. Current temp 36.5, pulse 62, respiratory rate 20, blood pressure 129/72, saturating well on room air. 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 Oral cavity negative. Lungs fairly clear. Cardiac tones without new murmurs. Abdomen obese. LABORATORIES: Include white count 9100, sed rate 60, creatinine 0.61. CRP was 13, now 9. Procalcitonin is consistently low at 0.13 at this point. Urinalysis without white cells but he does have elevated protein in the urine. Serologic studies include Bartonella and Q fever serologies which are pending. A streptozyme is also pending. Blood cultures negative. IMPRESSION: This is a difficult case of a gentleman who presented with about five days of fevers, chills, malaise, weakness and facial swelling. Initially it was felt that perhaps some of the facial swelling could be a reaction to a specific brand of insulin he was started on after admission, but that has not been conclusively proven. Dr. Gustafson also wonders whether the patient could have nephrotic syndrome which could certainly result in a facial edema and swelling that we saw shortly after admission, and I think that is worth exploring as well. I see no evidence for infection at this time. We have 10 negative blood culture bottles and no evidence of endocarditis by transthoracic echo. We still have pending Bartonella and Q fever serologies but my suspicion is these will also be negative. RECOMMENDATIONS: 1. No antibiotics at this time. 2. I agree with consulting Nephrology. 3. Will follow up on the Bartonella and Q fever serologies and certainly the patient will be contacted if these studies are positive. We can also see the patient in my clinic the first week of July or July 25, to follow up on his final serologies. 4. Given that there is no active ID problem right now, ID will go ahead and sign off. Thank you very much.
--- NOTE | 2016-07-15 17:06 | CONS ---
[address] [address] CONSULTATION REPORT PATIENT: FEDE TAVARES : 1940 MR#: [id number] ADMIT: 07/11/2016 JOB ID: [id number] DATE OF SERVICE: 07/15/2016 REQUESTING PHYSICIAN: Dr. Gustafson. REASON FOR CONSULTATION: Management of proteinuria. CHIEF COMPLAINT: Fever. PRESENT ILLNESS: This is a very pleasant, 75-year-old male with significant past medical history of type 2 diabetes, hypertension and dyslipidemia, who presented to the hospital with acute onset of fever. The patient was in his usual state of health up until three days prior to the admission when he experienced acute onset of fever. Per his , he started having fevers, chills, malaise, arthralgia and loss of appetite last weekend. The patient came to the emergency department on July 11, 2016. Septic workup was performed. Per ED note, he was found to have murmur. Endocarditis was concerned. Nonetheless, the patient has had negative blood cultures since the admission. Echocardiogram showed no significant valvular heart disease and no obvious valvular vegetation on the TTE. Respiratory viral PCR was negative. Within 24 hours after the admission, he developed facial swelling. CT head and neck was done and showed no evidence of superior vena cava obstruction. It shows extensive nonspecific mild soft tissue edema involving the neck and visualized facial soft tissues. The etiology of facial swelling has been unknown. Of note, the patient has been on lisinopril since October 2015. He reports no reaction after taking lisinopril. In review of the record, the only new medication that was added so far was the insulin lisinopril which was administered on July 11, 2016 at night and on the next morning he developed facial swelling. Currently, the swelling has almost subsided. The skin on the forehead is starting to peel. The patient reports no history of tongue swelling or difficulty breathing. The patient reports no history of fever over the past 48 hours. Antibiotics have not been initiated. Dr. Canseco was consulted. Blood culture negative. Endocarditis has been worked up. Per renal perspective, our service was consulted given history of proteinuria. The patient had three different UAs ordered which showed proteinuria. The patient has had history of type 2 diabetes for at least 10 years. He had history of poor compliance. Prior to the admission, he was not on any insulin. He takes metformin and often skips taking it. He denies history of retinopathy. However, he reports a tingling sensation on both hands. The patient takes ibuprofen once or twice per week over the past one month. The patient had history of arthralgia but no morning stiffness. No joint swelling. No hemoptysis. No chronic cough. Diabetes runs in the family. His mother's sister and nephew were on dialysis. His nephew later on had a kidney transplant. He reports no history of kidney stones or nocturia. PAST MEDICAL HISTORY: 1. Type 2 diabetes diagnosed at least 10 years. 2. Hypertension. 3. Dyslipidemia. SURGICAL HISTORY: Status post cholecystectomy. FAMILY HISTORY: His mother was on dialysis. She in her 80s secondary to [place]. His sister is on dialysis. His nephew was on dialysis and later on had a kidney transplant. Positive diabetes in the family. Positive for CVA. Positive for brain aneurysm in brother. SOCIAL HISTORY: He is a retired fish salesman. He occasionally smokes a cigar. He had history of heavy alcohol abuse and quit drinking 26 years ago. Denies current use of illicit drugs. REVIEW OF SYSTEMS: Fourteen point review of system was performed. MEDICATIONS: 1. Aspirin. 2. Atorvastatin. 3. Ibuprofen. 4. Lisinopril. 5. Metformin. 6. Betamethasone. PHYSICAL EXAMINATION: Vitals: Temperature 36.5, pulse 61, respiratory rate 20, blood pressure 129/72, O2 sat 99% on room air. General appearance: Awake, alert, oriented x3. No acute distress. HEENT: No pallor. No jaundice. No JVD. No lymphadenopathy. No thyroid enlargement. Positive for facial swelling and skin peeling on the forehead. Heart: Regular rhythm. Normal S1, S2. Systolic murmur noted. Lungs: Clear to auscultation bilaterally. No wheezing. No rhonchi. Abdomen: Soft, obese, active bowel sounds. Nontender. Nondistended. Extremities are trace edema on the lower extremity. Chronic skin changes. Good pedal pulses. LABORATORY: WBC 9.1, hemoglobin 11.6, platelets 260. Sodium 137, potassium 4.2, chloride 98, bicarb 25, BUN 11, creatinine 0.61. A1c 12.4, calcium 9.1, magnesium 1.6. Total bili is 0.3. ProBNP 956.8, albumin 2.9. Urine specific gravity 1.013, pH 6.0, 100 protein, 250 glucose, 0-5 RBCs, 0-5 WBC. No casts seen. ASSESSMENT: 1. Proteinuria: The etiology is rather related to type 2 diabetes. The patient is not compliant to the medications and diet. Recent hemoglobin A1c was 12.4. I would like to check urine protein and creation ratio. Given history of fever and new-onset murmur, we will keep glomerulonephritis (postinfectious GN) in mind. Yet, UA did not show any active sediments. Of note, CBC showed worsening eosinophilia. Acute interstitial nephritis is also in my differential diagnosis. We will go ahead and order urine eosinophils. Vasculitis workup will be ordered. 2. Acute febrile illness. 3. New-onset murmur, culture negative endocarditis has been worked up by infectious disease physician. 4. Facial swelling, resolved on its own. Questionable drug reaction. I doubt it is related to lisinopril since he has been on this the whole time and the swelling has gotten better on its own. 5. Type 2 diabetes, poorly controlled. 6. Obesity. 7. Hypertension. 8. Dyslipidemia. Thank you for allowing me to participate in the care of your patient. We will monitor along with you. MIGUELD
[2016-07-16] VITALS (8 sets, daily range): BP systolic 131–168; BP diastolic 76–85; PULSE 58–71; RESP 18–20; O2SAT 64–98
--- NOTE | 2016-07-16 00:33 | PCM.PNMED ---
Subjective Date of Service July 16, 2016 Subjective The patient does not feel well today despite improvement in the facial edema. He is not interested in going home which is really surprising his Exam Vital Signs Vital Sign - Last Date Time Temp Pulse Resp B/P Pulse Ox O2 Delivery O2 Flow Rate FiO2 07/15/16 20:48 36.6 61 20 158/91 97 Room Air Intake and Output 07/15/16 07/15/16 07/16/16 Cumulative From/Thru 15:00 23:00 07:00 07/11/16 13:31 - 07/15/16 19:18 Intake Total 1547 ml 88352 ml Output Total 1200 ml 9097 ml Balance 347 ml 3141 ml Intake Oral 1547 ml 7289 ml IV Total 4949 ml Output Urine Total 1200 ml 9097 ml # Voids 7 # Bowel Movements 0 Exam General: The patient is in no apparent distress. He is sitting up in a bedside chair. He appears fatigued. HEENT: Head is atraumatic and normocephalic. However, his face is less swollen and edematous again today. Eyes: The periorbital edema has improved again today. Pupils are equally round and reactive to light and accommodation. Extraocular muscles are intact. Sclera are white, anicteric. Subconjunctival mucosa is pink. Ears and nose are unremarkable. Oropharynx: There are no mucosal lesions, there is no thrush, there is no pharyngitis. Neck: Is supple, there are no nodes, or masses or tenderness. Chest: Is clear to auscultation and percussion. There are no rales, rhonchi, wheezes or rubs. Heart: Rate, rhythm is regular. There is a grade 2/6 systolic ejection murmur heard best at the left sternal border. Abdomen: Good bowel sounds are present. Abdomen is soft, nontender, no organomegaly or masses were appreciated. Extremities: Are symmetrical and well perfused. There is no edema, there is no cellulitis, no rash. Neurologic: There are no focal neurological deficits. Cranial nerves II through XII are intact. There are no sensory or motor deficits. Psychiatric: Patients mood is calm and he shows no sign of agitation. Genital: Deferred Rectal: Deferred Lab and Diagnostics Result Diagram: 07/15/16 0544 07/15/1644 Microbiology All of Patient blood cultures are negative to date. X-Rays, CTs and MRIs PROCEDURE: CT ABDOMEN AND PELVIS WITH CONTRAST ([id number]) INDICATIONS: fever TECHNIQUE: After the administration of intravenous contrast, 5 mm thick sections acquired from the diaphragm to the symphysis. 5 mm coronal and sagittal reformats were acquired. For radiation dose reduction, the following was used: automated exposure control, adjustment of mA and/or kV according to patient size. COMPARISON: None. FINDINGS: Image quality: Diagnostic. ABDOMEN: Lung bases: Lung bases are clear. Heart size is normal. Solid organs: The gallbladder is surgically absent. Mild intrahepatic biliary dilatation is present with the common bile duct is prominent in size then noted to measure up to approximately 9 mm in diameter. The liver demonstrates a small hepatic cyst along the anterior margin of the medial left hepatic lobe. The spleen, adrenals, and kidneys are within normal limits. A few small cysts probably are present involving the left kidney. No solid renal lesions are appreciated. There is no hydronephrosis. Subtle calcifications within the pancreas are noted. The pancreas is otherwise unremarkable. No peripancreatic inflammation is identified. Peritoneum and bowel: The stomach, duodenum, and remainder of the small bowel loops are nondilated. Moderate residual stool is seen within the colon. There is no bowel obstruction. No mesenteric inflammation is evident. There is no free fluid, loculated fluid collection or free air. Nodes and vessels: No retroperitoneal or mesenteric adenopathy by size criteria. Aorta and inferior vena cava are normal in size. Aortic and iliac artery atherosclerosis is present. Miscellaneous and bones: No ventral hernias. Moderate to severe multilevel degenerative changes of the imaged thoracolumbar spine are present. No acute fractures or suspicious osseous lesions are present. PELVIS: Genitourinary: Bladder wall thickness is normal. The prostate is not enlarged. Coarse calcifications within the prostate are noted. The ureters are nondilated. Miscellaneous: No inguinal hernias or adenopathy. No free fluid, loculated fluid collection or free air is evident. Bones: No suspicious bony lesions. No acute pelvic fractures are evident. There are severe degenerative changes of the bilateral hips. Calcifications involving the proximal bilateral hamstrings tendons may be related to calcific tendinitis or chronic partial-thickness injuries. Severe degenerative changes of the sacroiliac joints are also present. IMPRESSION: 1. No acute abnormality is evident within the abdomen or pelvis. 2. No bowel obstruction or bowel inflammation. 3. Mild enlargement of the common bile duct probably is within normal limits for this patient, given the prior cholecystectomy. If the patient's liver function tests are persistently elevated and/or increasing, MRCP may be helpful to exclude the possibility of a small stone within the common bile duct. 4. Prominent degenerative changes of the lumbosacral spine and hips. Dictated by: Robbie Mesa M.D. on 07/11/2016 at 14:15 Approved by: Robbie Mesa M.D. on 07/11/2016 at 14:21 PROCEDURE: CT BRAIN WITHOUT CONTRAST ([id number]) INDICATIONS: 75-year-old man with weakness. TECHNIQUE: Noncontrast 4.5 mm thick angled axial sections acquired from the foramen magnum to the vertex, with coronal reformats. COMPARISON: None. FINDINGS: Image quality: Excellent. CSF spaces: Basal cisterns are patent. No extra-axial fluid collections. The ventricles are symmetric in size and shape. Brain: No intracranial bleeds or masses. There is moderate cerebral volume loss for age, with resultant sulcal prominence, most pronounced in frontal lobes bilaterally. There are mild periventricular and deep white matter chronic small vessel ischemic changes. There is intracranial internal carotid artery atherosclerosis. Skull and face: Calvarium and visualized facial bones appear intact, without suspicious lesions. Sinuses: Visualized sinuses and mastoids are clear. IMPRESSION: 1. No acute intracranial abnormalities. 2. Mild cerebral volume loss and chronic microvascular ischemic changes. Dictated by: Darin Denise M.D. on 07/11/2016 at 15:04 Approved by: Darin Denise M.D. on 07/11/2016 at 15:12 PROCEDURE: X-RAY CHEST, TWO VIEWS ([id number]) INDICATIONS: fever TECHNIQUE: 2 views of the chest were acquired. COMPARISON: None. FINDINGS: Surgical changes and devices: None. Lungs and pleura: No pleural effusions or pneumothorax. Lungs are clear. Slight increased interstitial markings within the infrahilar regions probably are chronic. Mediastinum: Mediastinal contours are normal. Heart size is normal. There may be mild aortic atherosclerosis. Bones and chest wall: No suspicious bony abnormalities. Degenerative changes of the bilateral shoulders and spine are incidentally noted. Soft tissues appear unremarkable. IMPRESSION: No acute cardiopulmonary process is evident. No definite pneumonia or overt heart failure. Dictated by: Robbie Mesa M.D. on 07/11/2016 at 13:27 Approved by: Robbie Mesa M.D. on 07/11/2016 at 13:28 Cardiac Echo Impressions Echocardiogram Report Name: FEDE TAVARES Study Date: 07/12/2016 Height: 66 in Hospital Exam Location: [facility] Weight: 230 lb Gender: Male BSA: 2.1 m2 : 1940 Age: 75 yrs BP: 127/65 mmHg Reason For Study: FEVER, MURMUR Ordering Physician: ELIF CALHOUN Performed By: Anton Galindo Referring Physician: Jennifer MUNOZ Interpretation Summary Left ventricular wall thickness is mildly increased. Left ventricular systolic function is normal without focal wall motion abnormalities. The ejection fraction is estimated to be 60-65%. Assessment of diastolic parameters indicates a relaxation abnormality of the left ventricle, consistent with normal filling pressures. The right ventricle is normal in size and function. The right ventricular systolic pressure is estimated at 31 mmHg assuming a right atrial pressure of 8 mm Hg. The left atrium is severely dilated. The right atrium is mildly dilated. There is mild mitral regurgitation. There is no other significant valvular heart disease. There is no obvious valvular vegetation identified on this exam. The ascending aorta is mildly enlarged. Assessment & Plan Patient is a 75-year-old gentleman who presented to the emergency room with the complaint of weakness and fevers. The patient states that for the last few days he has been feeling weak and has had temperatures from 101F -103F. The patient has also complained of overall generalized weakness. There is a new onset murmur that was found upon exam while in the ER and there are some concerns for possible endocarditis. The patient did have leukocytosis with a white blood cell count of 14.1 on admission, brain CT was negative, abdomen CT was negative. Both cardiology and infectious disease were consulted from the ED. SIRS criteria met (present on admission) -Leukocytosis white blood cell count 14.1 -Fever up to 38.5 on admission. However, today patient is afebrile -Blood cultures pending, but negative so far. -Viral PCR is negative -Antibiotics to be held per infectious disease. -Infectious disease consulted (Dr. Munoz) appreciated his time and expertise. I have discussed case at length with him today. Possible endocarditis (present on admission) -We have obtained more blood cultures off antibiotic. -Echocardiogram fails to reveal source of fever -Cardiology consulted (Dr. Monge). I discussed with him and he will consult if needed. -Continue to hold antibiotics for now while we await results of several sets of blood cultures. Dr. Munoz believes that are lab will be able to detect HACEK group organisms. He has also ordered Bartonella and Q fever serologies -Dr. Munoz's time and expertise is appreciated -Continue telemetry monitoring for now Diabetes -Hemoglobin A1c is markedly elevated at 12.4 -Insulin sliding scale -Accu-Cheks before meals and at bedtime -We will continue to hold metformin as patient recently had contrast for imaging studies. -We will start regular insulin. -IV fluids, given to protect kidneys from IV contrast used, has been discontinued as patient is eating and drinking well. 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 Will obtain nephrology consultation as this may be helpful for the patient's preservation of renal function in the future. Due to his poor diabetic control. -Continue to monitor. Diet: Diabetic Disposition: Patient will be here another 24-48 hours for the evaluation and treatment of the above condition. Pain Evaluation: Adequate Pain Control GI Prophylaxis: Not indicated VTE Prophylaxis: Sub-Q Enoxaparin VTE Mechanical Devices: Intermittant Pneumatic CD Resuscitation Status: CPR: Attempt Resuscitation Alex Gustafson MD July 16, 2016 00:33
--- NOTE | 2016-07-16 05:43 | NUR ---
Uneventful Night pt has been able to sleep during the night with minimal interruptions. VSS, afebrile, on RA. IV flushed with 10cc NS, it remains patent, pt denies discomfort at the site. pt is A&Ox3, using the call light appropriately to make needs known, placed within reach.
[2016-07-16 06:44] LABS: Mean Corpuscular Hemoglobin 29.6 pg (27.0-35.0); Mean Corpuscular Volume 86.8 fL (81-100)
[2016-07-16 06:45] LABS: BASOPHILS % (AUTO) 0.5 % (0-3); EOSINOPHILS % (AUTO) 3.9 % (0-5); Platelet Count 304 bil/L (150-400)
[2016-07-16] MEDS: Insulin Human REGular 300 Unit/3 mL Inj SUBQ SCH ×2 (07:51→11:09)
--- NOTE | 2016-07-16 10:11 | PCM.PNNEPH ---
Subjective Date of Service July 16, 2016 Subjective Patient offers no new complaints today are thoroughly reviewed his chart and Dr. Julian's evaluation. Much of the workup is pending at time of this dictation. He does have about 1 g of protein in his urine and a long-standing history of poorly controlled type II diabetes. He denies any prostate problems , hematuria, or difficulties with urination. In the last 24 hours he has had 2367 in 1200 out. His blood pressure has been averaging in the 160 range systolic. His morning his hemoglobin is 11.9, sodium 135, potassium 4.3, chloride 96, bicarbonate 28, P1 and creatinine are 12 and 0.54 respectively. Exam Vital Signs Vital Sign - Last Date Time Temp Pulse Resp B/P Pulse Ox O2 Delivery O2 Flow Rate FiO2 07/16/16 10:03 36.7 71 20 133/76 98 Room Air Intake and Output 07/15/16 07/15/16 07/16/16 Cumulative From/Thru 15:00 23:00 07:00 07/11/16 13:31 - 07/16/16 06:40 Intake Total 1547 ml 200 ml 29245 ml Output Total 1200 ml 850 ml 9947 ml Balance 347 ml -650 ml 2491 ml Intake Oral 1547 ml 200 ml 7489 ml IV Total 4949 ml Output Urine Total 1200 ml 850 ml 9947 ml # Voids 7 # Bowel Movements 0 0 Exam Neck is supple without adenopathy, thyromegaly, or jugular venous distention. Lungs are clear to auscultations O's breath sounds are markedly diminished in both bases secondary to his obesity. Heart was regular and rhythmical with a soft systolic murmur. Abdomen soft without any tenderness rebound guarding masses or hepatosplenomegaly. Extremities do not show any evidence of any clubbing, cyanosis, or edema. Skin turgor is good. Lab and Diagnostics Result Diagram: 07/16/1655 07/16/16554 Microbiology All of Patient blood cultures are negative to date. X-Rays, CTs and MRIs PROCEDURE: CT ABDOMEN AND PELVIS WITH CONTRAST ([id number]) INDICATIONS: fever TECHNIQUE: After the administration of intravenous contrast, 5 mm thick sections acquired from the diaphragm to the symphysis. 5 mm coronal and sagittal reformats were acquired. For radiation dose reduction, the following was used: automated exposure control, adjustment of mA and/or kV according to patient size. COMPARISON: None. FINDINGS: Image quality: Diagnostic. ABDOMEN: Lung bases: Lung bases are clear. Heart size is normal. Solid organs: The gallbladder is surgically absent. Mild intrahepatic biliary dilatation is present with the common bile duct is prominent in size then noted to measure up to approximately 9 mm in diameter. The liver demonstrates a small hepatic cyst along the anterior margin of the medial left hepatic lobe. The spleen, adrenals, and kidneys are within normal limits. A few small cysts probably are present involving the left kidney. No solid renal lesions are appreciated. There is no hydronephrosis. Subtle calcifications within the pancreas are noted. The pancreas is otherwise unremarkable. No peripancreatic inflammation is identified. Peritoneum and bowel: The stomach, duodenum, and remainder of the small bowel loops are nondilated. Moderate residual stool is seen within the colon. There is no bowel obstruction. No mesenteric inflammation is evident. There is no free fluid, loculated fluid collection or free air. Nodes and vessels: No retroperitoneal or mesenteric adenopathy by size criteria. Aorta and inferior vena cava are normal in size. Aortic and iliac artery atherosclerosis is present. Miscellaneous and bones: No ventral hernias. Moderate to severe multilevel degenerative changes of the imaged thoracolumbar spine are present. No acute fractures or suspicious osseous lesions are present. PELVIS: Genitourinary: Bladder wall thickness is normal. The prostate is not enlarged. Coarse calcifications within the prostate are noted. The ureters are nondilated. Miscellaneous: No inguinal hernias or adenopathy. No free fluid, loculated fluid collection or free air is evident. Bones: No suspicious bony lesions. No acute pelvic fractures are evident. There are severe degenerative changes of the bilateral hips. Calcifications involving the proximal bilateral hamstrings tendons may be related to calcific tendinitis or chronic partial-thickness injuries. Severe degenerative changes of the sacroiliac joints are also present. IMPRESSION: 1. No acute abnormality is evident within the abdomen or pelvis. 2. No bowel obstruction or bowel inflammation. 3. Mild enlargement of the common bile duct probably is within normal limits for this patient, given the prior cholecystectomy. If the patient's liver function tests are persistently elevated and/or increasing, MRCP may be helpful to exclude the possibility of a small stone within the common bile duct. 4. Prominent degenerative changes of the lumbosacral spine and hips. Dictated by: Robbie Mesa M.D. on 07/11/2016 at 14:15 Approved by: Robbie Mesa M.D. on 07/11/2016 at 14:21 PROCEDURE: CT BRAIN WITHOUT CONTRAST ([id number]) INDICATIONS: 75-year-old man with weakness. TECHNIQUE: Noncontrast 4.5 mm thick angled axial sections acquired from the foramen magnum to the vertex, with coronal reformats. COMPARISON: None. FINDINGS: Image quality: Excellent. CSF spaces: Basal cisterns are patent. No extra-axial fluid collections. The ventricles are symmetric in size and shape. Brain: No intracranial bleeds or masses. There is moderate cerebral volume loss for age, with resultant sulcal prominence, most pronounced in frontal lobes bilaterally. There are mild periventricular and deep white matter chronic small vessel ischemic changes. There is intracranial internal carotid artery atherosclerosis. Skull and face: Calvarium and visualized facial bones appear intact, without suspicious lesions. Sinuses: Visualized sinuses and mastoids are clear. IMPRESSION: 1. No acute intracranial abnormalities. 2. Mild cerebral volume loss and chronic microvascular ischemic changes. Dictated by: Darin Denise M.D. on 07/11/2016 at 15:04 Approved by: Darin Denise M.D. on 07/11/2016 at 15:12 PROCEDURE: X-RAY CHEST, TWO VIEWS ([id number]) INDICATIONS: fever TECHNIQUE: 2 views of the chest were acquired. COMPARISON: None. FINDINGS: Surgical changes and devices: None. Lungs and pleura: No pleural effusions or pneumothorax. Lungs are clear. Slight increased interstitial markings within the infrahilar regions probably are chronic. Mediastinum: Mediastinal contours are normal. Heart size is normal. There may be mild aortic atherosclerosis. Bones and chest wall: No suspicious bony abnormalities. Degenerative changes of the bilateral shoulders and spine are incidentally noted. Soft tissues appear unremarkable. IMPRESSION: No acute cardiopulmonary process is evident. No definite pneumonia or overt heart failure. Dictated by: Robbie Mesa M.D. on 07/11/2016 at 13:27 Approved by: Robbie Mesa M.D. on 07/11/2016 at 13:28 Cardiac Echo Impressions Echocardiogram Report Name: FEDE TAVARES Study Date: 07/12/2016 Height: 66 in Hospital Exam Location: [facility] Weight: 230 lb Gender: Male BSA: 2.1 m2 : 1940 Age: 75 yrs BP: 127/65 mmHg Reason For Study: FEVER, MURMUR Ordering Physician: ELIF CALHOUN Performed By: Anton Galindo Referring Physician: Jennifer MUNOZ Interpretation Summary Left ventricular wall thickness is mildly increased. Left ventricular systolic function is normal without focal wall motion abnormalities. The ejection fraction is estimated to be 60-65%. Assessment of diastolic parameters indicates a relaxation abnormality of the left ventricle, consistent with normal filling pressures. The right ventricle is normal in size and function. The right ventricular systolic pressure is estimated at 31 mmHg assuming a right atrial pressure of 8 mm Hg. The left atrium is severely dilated. The right atrium is mildly dilated. There is mild mitral regurgitation. There is no other significant valvular heart disease. There is no obvious valvular vegetation identified on this exam. The ascending aorta is mildly enlarged. Plan Impression Impression #1 diabetic nephropathy secondary to poorly controlled type II diabetes #2 proteinuria secondary #1 #3 hypertension with hypertensive heart disease and hypertensive nephrosclerosis. Recommendation #1 I would like to stop ibuprofen No. 2 would like to add chlorthalidone 25 mg daily along with labetalol 100 mg twice a day. We do need to focus on better blood pressure control. I will have further recommendations once his lab work is returned. Mookie Benson DO July 16, 2016 10:11
[2016-07-16] MEDS: Insulin REGULAR SS Med-Dose SUBQ SCH ×3 (11:25→21:37)
--- NOTE | 2016-07-16 22:50 | PCM.PNMED ---
Subjective Date of Service July 16, 2016 Subjective Patient is beginning to feel a little bit better today. He still somewhat lethargic however. His face is feeling better with decreased edema. He has no new complaints. Exam Vital Signs Vital Sign - Last Date Time Temp Pulse Resp B/P Pulse Ox O2 Delivery O2 Flow Rate FiO2 07/16/16 20:13 36.6 64 20 156/83 96 Room Air Intake and Output 07/15/16 07/15/16 07/16/16 Cumulative From/Thru 15:00 23:00 07:00 07/11/16 13:31 - 07/16/16 06:40 Intake Total 1547 ml 200 ml 08715 ml Output Total 1200 ml 850 ml 9947 ml Balance 347 ml -650 ml 2491 ml Intake Oral 1547 ml 200 ml 7489 ml IV Total 4949 ml Output Urine Total 1200 ml 850 ml 9947 ml # Voids 7 # Bowel Movements 0 0 Exam General: The patient is in no apparent distress. He appears more alert and interactive. HEENT: Head is atraumatic and normocephalic. However, his face is less swollen and edematous again today. Eyes: The periorbital edema has improved again today. Pupils are equally round and reactive to light and accommodation. Extraocular muscles are intact. Sclera are white, anicteric. Subconjunctival mucosa is pink. Ears and nose are unremarkable. Oropharynx: There are no mucosal lesions, there is no thrush, there is no pharyngitis. Neck: Is supple, there are no nodes, or masses or tenderness. Chest: Is clear to auscultation and percussion. There are no rales, rhonchi, wheezes or rubs. Heart: Rate, rhythm is regular. There is a grade 2/6 systolic ejection murmur heard best at the left sternal border. Abdomen: Good bowel sounds are present. Abdomen is obese, soft, nontender, no organomegaly or masses were appreciated. Extremities: Are symmetrical and well perfused. There is no edema, there is no cellulitis, no rash. Neurologic: There are no focal neurological deficits. Patient is now able to ambulate into the hallway. Cranial nerves II through XII are intact. There are no sensory or motor deficits. Psychiatric: Patients mood is calm and he shows no sign of agitation. Genital: Deferred Rectal: Deferred Lab and Diagnostics Result Diagram: 07/16/16 0555 07/16/16 0555 Microbiology All of Patient blood cultures are negative to date. X-Rays, CTs and MRIs PROCEDURE: CT ABDOMEN AND PELVIS WITH CONTRAST ([id number]) INDICATIONS: fever TECHNIQUE: After the administration of intravenous contrast, 5 mm thick sections acquired from the diaphragm to the symphysis. 5 mm coronal and sagittal reformats were acquired. For radiation dose reduction, the following was used: automated exposure control, adjustment of mA and/or kV according to patient size. COMPARISON: None. FINDINGS: Image quality: Diagnostic. ABDOMEN: Lung bases: Lung bases are clear. Heart size is normal. Solid organs: The gallbladder is surgically absent. Mild intrahepatic biliary dilatation is present with the common bile duct is prominent in size then noted to measure up to approximately 9 mm in diameter. The liver demonstrates a small hepatic cyst along the anterior margin of the medial left hepatic lobe. The spleen, adrenals, and kidneys are within normal limits. A few small cysts probably are present involving the left kidney. No solid renal lesions are appreciated. There is no hydronephrosis. Subtle calcifications within the pancreas are noted. The pancreas is otherwise unremarkable. No peripancreatic inflammation is identified. Peritoneum and bowel: The stomach, duodenum, and remainder of the small bowel loops are nondilated. Moderate residual stool is seen within the colon. There is no bowel obstruction. No mesenteric inflammation is evident. There is no free fluid, loculated fluid collection or free air. Nodes and vessels: No retroperitoneal or mesenteric adenopathy by size criteria. Aorta and inferior vena cava are normal in size. Aortic and iliac artery atherosclerosis is present. Miscellaneous and bones: No ventral hernias. Moderate to severe multilevel degenerative changes of the imaged thoracolumbar spine are present. No acute fractures or suspicious osseous lesions are present. PELVIS: Genitourinary: Bladder wall thickness is normal. The prostate is not enlarged. Coarse calcifications within the prostate are noted. The ureters are nondilated. Miscellaneous: No inguinal hernias or adenopathy. No free fluid, loculated fluid collection or free air is evident. Bones: No suspicious bony lesions. No acute pelvic fractures are evident. There are severe degenerative changes of the bilateral hips. Calcifications involving the proximal bilateral hamstrings tendons may be related to calcific tendinitis or chronic partial-thickness injuries. Severe degenerative changes of the sacroiliac joints are also present. IMPRESSION: 1. No acute abnormality is evident within the abdomen or pelvis. 2. No bowel obstruction or bowel inflammation. 3. Mild enlargement of the common bile duct probably is within normal limits for this patient, given the prior cholecystectomy. If the patient's liver function tests are persistently elevated and/or increasing, MRCP may be helpful to exclude the possibility of a small stone within the common bile duct. 4. Prominent degenerative changes of the lumbosacral spine and hips. Dictated by: Robbie Mesa M.D. on 07/11/2016 at 14:15 Approved by: Robbie Mesa M.D. on 07/11/2016 at 14:21 PROCEDURE: CT BRAIN WITHOUT CONTRAST ([id number]) INDICATIONS: 75-year-old man with weakness. TECHNIQUE: Noncontrast 4.5 mm thick angled axial sections acquired from the foramen magnum to the vertex, with coronal reformats. COMPARISON: None. FINDINGS: Image quality: Excellent. CSF spaces: Basal cisterns are patent. No extra-axial fluid collections. The ventricles are symmetric in size and shape. Brain: No intracranial bleeds or masses. There is moderate cerebral volume loss for age, with resultant sulcal prominence, most pronounced in frontal lobes bilaterally. There are mild periventricular and deep white matter chronic small vessel ischemic changes. There is intracranial internal carotid artery atherosclerosis. Skull and face: Calvarium and visualized facial bones appear intact, without suspicious lesions. Sinuses: Visualized sinuses and mastoids are clear. IMPRESSION: 1. No acute intracranial abnormalities. 2. Mild cerebral volume loss and chronic microvascular ischemic changes. Dictated by: Darin Denise M.D. on 07/11/2016 at 15:04 Approved by: Darin Denise M.D. on 07/11/2016 at 15:12 PROCEDURE: X-RAY CHEST, TWO VIEWS ([id number]) INDICATIONS: fever TECHNIQUE: 2 views of the chest were acquired. COMPARISON: None. FINDINGS: Surgical changes and devices: None. Lungs and pleura: No pleural effusions or pneumothorax. Lungs are clear. Slight increased interstitial markings within the infrahilar regions probably are chronic. Mediastinum: Mediastinal contours are normal. Heart size is normal. There may be mild aortic atherosclerosis. Bones and chest wall: No suspicious bony abnormalities. Degenerative changes of the bilateral shoulders and spine are incidentally noted. Soft tissues appear unremarkable. IMPRESSION: No acute cardiopulmonary process is evident. No definite pneumonia or overt heart failure. Dictated by: Robbie Mesa M.D. on 07/11/2016 at 13:27 Approved by: Robbie Mesa M.D. on 07/11/2016 at 13:28 Cardiac Echo Impressions Echocardiogram Report Name: FEDE TAVARES Study Date: 07/12/2016 Height: 66 in Hospital Exam Location: [facility] Weight: 230 lb Gender: Male BSA: 2.1 m2 : 1940 Age: 75 yrs BP: 127/65 mmHg Reason For Study: FEVER, MURMUR Ordering Physician: ELIF CALHOUN Performed By: Anton Galindo Referring Physician: Jennifer MUNOZ Interpretation Summary Left ventricular wall thickness is mildly increased. Left ventricular systolic function is normal without focal wall motion abnormalities. The ejection fraction is estimated to be 60-65%. Assessment of diastolic parameters indicates a relaxation abnormality of the left ventricle, consistent with normal filling pressures. The right ventricle is normal in size and function. The right ventricular systolic pressure is estimated at 31 mmHg assuming a right atrial pressure of 8 mm Hg. The left atrium is severely dilated. The right atrium is mildly dilated. There is mild mitral regurgitation. There is no other significant valvular heart disease. There is no obvious valvular vegetation identified on this exam. The ascending aorta is mildly enlarged. Assessment & Plan Patient is a 75-year-old gentleman who presented to the emergency room with the complaint of weakness and fevers. The patient states that for the last few days he has been feeling weak and has had temperatures from 101F -103F. The patient has also complained of overall generalized weakness. There is a new onset murmur that was found upon exam while in the ER and there are some concerns for possible endocarditis. The patient did have leukocytosis with a white blood cell count of 14.1 on admission, brain CT was negative, abdomen CT was negative. Both cardiology and infectious disease were consulted from the ED. patient was admitted to the hospitalist service SIRS criteria met (present on admission) -Leukocytosis white blood cell count 14.1 on admission -Fever up to 38.5 on admission. However, today the patient is afebrile -Blood cultures pending, but negative so far. -Viral PCR is negative -Antibiotics to be held per infectious disease. -Infectious disease consulted (Dr. Munoz) appreciated his time and expertise. I have discussed the patient's case with him again at length today. Possible endocarditis (present on admission) -We have obtained more blood cultures off antibiotic. -Echocardiogram fails to reveal source of fever -Cardiology consulted (Dr. Monge). I discussed with him and he will consult if needed. -Continue to hold antibiotics for now while we await results of several sets of blood cultures. Dr. Munoz believes that our lab will be able to detect HACEK group organisms. He has also ordered Bartonella and Q fever serologies -Dr. Munoz's time and expertise is appreciated -Continue telemetry monitoring for now Diabetes -Hemoglobin A1c is markedly elevated at 12.4 -Insulin sliding scale -Accu-Cheks before meals and at bedtime -We will restart metformin as patient had contrast for imaging studies over 48 hours ago. -We will continue regular insulin before meals and at bedtime when necessary. -IV fluids, given to protect kidneys from IV contrast used, has been discontinued as patient is eating and drinking well. Hyperlipidemia -Continue home dose of atorvastatin Hypertension -Continue home dose of lisinopril 10 mg daily Facial swelling is improved again today however patient does have continued proteinuria -Superior vena cava syndrome ruled out by negative chest CT scan -One wonders if patient had nephrotic range proteinuria at the time of admission with periorbital and facial edema. Will obtain nephrology consultation as this may be helpful for the patient's preservation of renal function in the future. Due to his poor diabetic control. Discussed with Dr. Benson today and patient is time and expertise. -Continue to monitor. Diet: Diabetic Disposition: Patient will be here another 24 hours for the evaluation and treatment of the above condition. Pain Evaluation: Adequate Pain Control GI Prophylaxis: Not indicated VTE Prophylaxis: Sub-Q Enoxaparin VTE Mechanical Devices: Intermittant Pneumatic CD Resuscitation Status: CPR: Attempt Resuscitation Alex Gustafson MD July 16, 2016 22:50
[2016-07-17 01:36] VITALS: BP 143/63; PULSE 68; RESP 20; O2SAT 99
[2016-07-17 06:11] VITALS: BP 143/72; PULSE 66; RESP 20; O2SAT 93
[2016-07-17 06:20] LABS: BASOPHILS % (AUTO) 0.4 % (0-3); EOSINOPHILS % (AUTO) 2.2 % (0-5); MONOCYTES % (AUTO) 9.1 % (4-12); Mean Corpuscular Hemoglobin 29.9 pg (27.0-35.0); Mean Corpuscular Volume 86.8 fL (81-100); NEUTROPHILS % (AUTO) 60.4 % (40-74); Platelet Count 329 bil/L (150-400)
[2016-07-17 07:01] LABS: Magnesium 1.5 mg/dL (1.6-2.6)
--- NOTE | 2016-07-17 07:04 | NUR ---
Uneventful Night Pt denies any pain/SOB/N/V/fever/chills. VSS. Sleeping most of night comfortably.
[2016-07-17 07:47] LABS: ERYTHROCYTE SEDIMENTATION RATE 50 mm/hr (0-30)
[2016-07-17] MEDS: Insulin REGULAR SS Med-Dose SUBQ SCH ×2 (08:08→11:33)
[2016-07-17 10:00] VITALS: BP 108/63; PULSE 70; RESP 18; O2SAT 98
--- NOTE | 2016-07-17 10:27 | PCM.PNNEPH ---
Subjective Date of Service July 17, 2016 Subjective Patient continues to do well. His blood pressure is also improving and well within the normal range. In the last 24 hours she has had 1536 in and 2255 out. This morning his sodium is 135, potassium 4.4, chloride of 95, bicarbonate 28, BUN and creatinine were 13 and 0.64 respectively. His magnesium is on the low end at 1.5. His Anka and DEMAR titers are pending. Streptozyme C3 and C4 were all within normal limits. Patient is feeling well and is not having any problems with chest pain, shortness of breath, cough or wheezing. I have discussed the patient's condition and his test results with the patient and separately with the patient's . Exam Vital Signs Vital Sign - Last Date Time Temp Pulse Resp B/P Pulse Ox O2 Delivery O2 Flow Rate FiO2 07/17/16 10:00 36.6 70 18 108/63 98 Room Air Intake and Output 07/16/16 07/16/16 07/17/16 Cumulative From/Thru 15:00 23:00 07:00 07/11/16 13:31 - 07/16/16 20:06 Intake Total 1336 ml 65750 ml Output Total 1405 ml 83036 ml Balance -69 ml 2422 ml Intake Oral 1336 ml 8825 ml IV Total 4949 ml Output Urine Total 1405 ml 49673 ml # Voids 7 # Bowel Movements 1 1 Exam Neck supple without adenopathy, thyromegaly, or jugular venous distention. Lungs are clear to auscultation. Heart is regular and rhythmical with a soft systolic murmur. Abdomen is soft without any tenderness or rebound guarding masses or hepatosplenomegaly. Extremities do not show any evidence of any clubbing or cyanosis. He does have some mild pitting edema but this appears to be improved. He also has evidence of brawny induration circumferential pattern in both lower extremities. Skin turgor is good is no evidence of any rashes. Lab and Diagnostics Result Diagram: 07/17/1653907/17/16539 Microbiology All of Patient blood cultures are negative to date. X-Rays, CTs and MRIs PROCEDURE: CT ABDOMEN AND PELVIS WITH CONTRAST ([id number]) INDICATIONS: fever TECHNIQUE: After the administration of intravenous contrast, 5 mm thick sections acquired from the diaphragm to the symphysis. 5 mm coronal and sagittal reformats were acquired. For radiation dose reduction, the following was used: automated exposure control, adjustment of mA and/or kV according to patient size. COMPARISON: None. FINDINGS: Image quality: Diagnostic. ABDOMEN: Lung bases: Lung bases are clear. Heart size is normal. Solid organs: The gallbladder is surgically absent. Mild intrahepatic biliary dilatation is present with the common bile duct is prominent in size then noted to measure up to approximately 9 mm in diameter. The liver demonstrates a small hepatic cyst along the anterior margin of the medial left hepatic lobe. The spleen, adrenals, and kidneys are within normal limits. A few small cysts probably are present involving the left kidney. No solid renal lesions are appreciated. There is no hydronephrosis. Subtle calcifications within the pancreas are noted. The pancreas is otherwise unremarkable. No peripancreatic inflammation is identified. Peritoneum and bowel: The stomach, duodenum, and remainder of the small bowel loops are nondilated. Moderate residual stool is seen within the colon. There is no bowel obstruction. No mesenteric inflammation is evident. There is no free fluid, loculated fluid collection or free air. Nodes and vessels: No retroperitoneal or mesenteric adenopathy by size criteria. Aorta and inferior vena cava are normal in size. Aortic and iliac artery atherosclerosis is present. Miscellaneous and bones: No ventral hernias. Moderate to severe multilevel degenerative changes of the imaged thoracolumbar spine are present. No acute fractures or suspicious osseous lesions are present. PELVIS: Genitourinary: Bladder wall thickness is normal. The prostate is not enlarged. Coarse calcifications within the prostate are noted. The ureters are nondilated. Miscellaneous: No inguinal hernias or adenopathy. No free fluid, loculated fluid collection or free air is evident. Bones: No suspicious bony lesions. No acute pelvic fractures are evident. There are severe degenerative changes of the bilateral hips. Calcifications involving the proximal bilateral hamstrings tendons may be related to calcific tendinitis or chronic partial-thickness injuries. Severe degenerative changes of the sacroiliac joints are also present. IMPRESSION: 1. No acute abnormality is evident within the abdomen or pelvis. 2. No bowel obstruction or bowel inflammation. 3. Mild enlargement of the common bile duct probably is within normal limits for this patient, given the prior cholecystectomy. If the patient's liver function tests are persistently elevated and/or increasing, MRCP may be helpful to exclude the possibility of a small stone within the common bile duct. 4. Prominent degenerative changes of the lumbosacral spine and hips. Dictated by: Robbie Mesa M.D. on 07/11/2016 at 14:15 Approved by: Robbie Mesa M.D. on 07/11/2016 at 14:21 PROCEDURE: CT BRAIN WITHOUT CONTRAST ([id number]) INDICATIONS: 75-year-old man with weakness. TECHNIQUE: Noncontrast 4.5 mm thick angled axial sections acquired from the foramen magnum to the vertex, with coronal reformats. COMPARISON: None. FINDINGS: Image quality: Excellent. CSF spaces: Basal cisterns are patent. No extra-axial fluid collections. The ventricles are symmetric in size and shape. Brain: No intracranial bleeds or masses. There is moderate cerebral volume loss for age, with resultant sulcal prominence, most pronounced in frontal lobes bilaterally. There are mild periventricular and deep white matter chronic small vessel ischemic changes. There is intracranial internal carotid artery atherosclerosis. Skull and face: Calvarium and visualized facial bones appear intact, without suspicious lesions. Sinuses: Visualized sinuses and mastoids are clear. IMPRESSION: 1. No acute intracranial abnormalities. 2. Mild cerebral volume loss and chronic microvascular ischemic changes. Dictated by: Darin Denise M.D. on 07/11/2016 at 15:04 Approved by: Darin Denise M.D. on 07/11/2016 at 15:12 PROCEDURE: X-RAY CHEST, TWO VIEWS ([id number]) INDICATIONS: fever TECHNIQUE: 2 views of the chest were acquired. COMPARISON: None. FINDINGS: Surgical changes and devices: None. Lungs and pleura: No pleural effusions or pneumothorax. Lungs are clear. Slight increased interstitial markings within the infrahilar regions probably are chronic. Mediastinum: Mediastinal contours are normal. Heart size is normal. There may be mild aortic atherosclerosis. Bones and chest wall: No suspicious bony abnormalities. Degenerative changes of the bilateral shoulders and spine are incidentally noted. Soft tissues appear unremarkable. IMPRESSION: No acute cardiopulmonary process is evident. No definite pneumonia or overt heart failure. Dictated by: Robbie Mesa M.D. on 07/11/2016 at 13:27 Approved by: Robbie Mesa M.D. on 07/11/2016 at 13:28 Cardiac Echo Impressions Echocardiogram Report Name: FEDE TAVARES Study Date: 07/12/2016 Height: 66 in Hospital Exam Location: [facility] Weight: 230 lb Gender: Male BSA: 2.1 m2 : 1940 Age: 75 yrs BP: 127/65 mmHg Reason For Study: FEVER, MURMUR Ordering Physician: ELIF TEAM Performed By: Anton Galindo Referring Physician: Jennifer MUNOZ Interpretation Summary Left ventricular wall thickness is mildly increased. Left ventricular systolic function is normal without focal wall motion abnormalities. The ejection fraction is estimated to be 60-65%. Assessment of diastolic parameters indicates a relaxation abnormality of the left ventricle, consistent with normal filling pressures. The right ventricle is normal in size and function. The right ventricular systolic pressure is estimated at 31 mmHg assuming a right atrial pressure of 8 mm Hg. The left atrium is severely dilated. The right atrium is mildly dilated. There is mild mitral regurgitation. There is no other significant valvular heart disease. There is no obvious valvular vegetation identified on this exam. The ascending aorta is mildly enlarged. Plan Impression Impression #1 mL stage II number to diabetic nephropathy #3 hypertension with hypertensive heart disease and hypertensive nephrosclerosis number for proteinuria secondary to diabetic nephropathy. Recommendations #1 from my point of view he can be discharged. He states that in about a week and a half is going to [place] for several months same and [employer] and I explained to him that I would like to see him in my office once he returns. I would continue him on the current medication she is on at this time. Mookie Benson DO July 17, 2016 10:27
[2016-07-17] MEDS ORDERED: Magnesium Sulf 4 Gm/100 mL H2O 4 GM in IV Premix 1 EACH IV ONE (11:00)
[2016-07-17 11:20] VITALS: PULSE 72
[2016-07-17] MEDS ORDERED: Magnesium Hydroxide 10 mL Oral Concentration PO PRN (12:05)
[2016-07-17 13:23] VITALS: BP 116/72; PULSE 64; RESP 20; O2SAT 98
[2016-07-17] MEDS ORDERED: Magnesium Sulf 2 Gm/50mL Water 2 GM in IV Premix 1 EACH IV ONE (14:00)
--- NOTE | 2016-07-17 14:49 | NUR ---
Social Work: Readiness for Discharge D: EMR reviewed. Pt is on day 6 of hospitalization and will likely discharge home later today per MD. EMR reviewed. Pt's spouse Courtney Childs ([phone]) will provide transport home via POV when pt is medically stable. SW does not anticipate any discharge needs at this time. SW will continue to follow for any discharge needs that may arise. A: Pt who is independent at baseline. P: Pt to transport home with spouse via POV when medically stable. SW will continue to follow if discharge needs arise. NOEL Douglas
--- NOTE | 2016-07-17 16:37 | PCM.DIMED ---
Discharge Instructions Date of Service July 17, 2016 Dates of Hospitalization July 11, 2016 at 16:35 Discharge Diagnosis Discharge Diagnosis Fever,facial edema and proteinuria. Diet Discharge Diet: Heart Healthy, Diabetic Activity Discharge Activity: No restrictions (The patient may return to his usual activity gradually as tolerated) Call your provider Call your provider for: Fever or Chills, Shortness of breath, Bleeding, Chest pain, Vomitting, Excessive diarrhea, Weakness (unilateral) Patient Instructions Follow-up Provider: [facility] Follow-up with PCP in: 1 week Provider: Mookie Benson DO Follow-up in: Other (Patient to make apointment in October,) Alex Gustafson MD July 17, 2016 16:37
[2016-07-17] MEDS ORDERED: LABE100T4 PO (16:42)
[2016-07-17] MEDS ORDERED: HYG25 PO (16:42)
[2016-07-17] MEDS ORDERED: SENN-133 PO (16:42)
[2016-07-17 17:13] VITALS: BP 107/67; PULSE 65; RESP 18; O2SAT 97
--- NOTE | 2016-07-17 17:48 | NUR ---
Discharge Pt d/c home with at 1545 via wc by an aide. Discharge info discussed with pt while was present, all questions answered. Pt strongly encouraged to f/u with the residency clinic (PCP not selected) prior to leaving to [place]. Pt denied pain. IV d/c prior to leaving. VSS. All personal belongings left with pt.
--- NOTE | 2016-07-18 00:33 | PCM.DC.MED ---
Discharge Summary Date of Service July 17, 2016 Dates of Hospitalization Date of Hospital Admission July 11, 2016 at 16:35 Date of Discharge: July 17, 2016 Providers: Admitting Physician: Tamia Hollis DO Primary Care Physician: Georges Attending Physician: Tamia Hollis DO Diagnosis at Time of Discharge Diagnosis at Time of Discharge Fever,facial edema and proteinuria. Consultations Infectious disease with Dr. Munoz and nephrology with Dr. Benson. Procedures XRay, CTs & MRIs PROCEDURE: CT ABDOMEN AND PELVIS WITH CONTRAST ([id number]) INDICATIONS: fever TECHNIQUE: After the administration of intravenous contrast, 5 mm thick sections acquired from the diaphragm to the symphysis. 5 mm coronal and sagittal reformats were acquired. For radiation dose reduction, the following was used: automated exposure control, adjustment of mA and/or kV according to patient size. COMPARISON: None. FINDINGS: Image quality: Diagnostic. ABDOMEN: Lung bases: Lung bases are clear. Heart size is normal. Solid organs: The gallbladder is surgically absent. Mild intrahepatic biliary dilatation is present with the common bile duct is prominent in size then noted to measure up to approximately 9 mm in diameter. The liver demonstrates a small hepatic cyst along the anterior margin of the medial left hepatic lobe. The spleen, adrenals, and kidneys are within normal limits. A few small cysts probably are present involving the left kidney. No solid renal lesions are appreciated. There is no hydronephrosis. Subtle calcifications within the pancreas are noted. The pancreas is otherwise unremarkable. No peripancreatic inflammation is identified. Peritoneum and bowel: The stomach, duodenum, and remainder of the small bowel loops are nondilated. Moderate residual stool is seen within the colon. There is no bowel obstruction. No mesenteric inflammation is evident. There is no free fluid, loculated fluid collection or free air. Nodes and vessels: No retroperitoneal or mesenteric adenopathy by size criteria. Aorta and inferior vena cava are normal in size. Aortic and iliac artery atherosclerosis is present. Miscellaneous and bones: No ventral hernias. Moderate to severe multilevel degenerative changes of the imaged thoracolumbar spine are present. No acute fractures or suspicious osseous lesions are present. PELVIS: Genitourinary: Bladder wall thickness is normal. The prostate is not enlarged. Coarse calcifications within the prostate are noted. The ureters are nondilated. Miscellaneous: No inguinal hernias or adenopathy. No free fluid, loculated fluid collection or free air is evident. Bones: No suspicious bony lesions. No acute pelvic fractures are evident. There are severe degenerative changes of the bilateral hips. Calcifications involving the proximal bilateral hamstrings tendons may be related to calcific tendinitis or chronic partial-thickness injuries. Severe degenerative changes of the sacroiliac joints are also present. IMPRESSION: 1. No acute abnormality is evident within the abdomen or pelvis. 2. No bowel obstruction or bowel inflammation. 3. Mild enlargement of the common bile duct probably is within normal limits for this patient, given the prior cholecystectomy. If the patient's liver function tests are persistently elevated and/or increasing, MRCP may be helpful to exclude the possibility of a small stone within the common bile duct. 4. Prominent degenerative changes of the lumbosacral spine and hips. Dictated by: Robbie Mesa M.D. on 07/11/2016 at 14:15 Approved by: Robbie Mesa M.D. on 07/11/2016 at 14:21 PROCEDURE: CT BRAIN WITHOUT CONTRAST ([id number]) INDICATIONS: 75-year-old man with weakness. TECHNIQUE: Noncontrast 4.5 mm thick angled axial sections acquired from the foramen magnum to the vertex, with coronal reformats. COMPARISON: None. FINDINGS: Image quality: Excellent. CSF spaces: Basal cisterns are patent. No extra-axial fluid collections. The ventricles are symmetric in size and shape. Brain: No intracranial bleeds or masses. There is moderate cerebral volume loss for age, with resultant sulcal prominence, most pronounced in frontal lobes bilaterally. There are mild periventricular and deep white matter chronic small vessel ischemic changes. There is intracranial internal carotid artery atherosclerosis. Skull and face: Calvarium and visualized facial bones appear intact, without suspicious lesions. Sinuses: Visualized sinuses and mastoids are clear. IMPRESSION: 1. No acute intracranial abnormalities. 2. Mild cerebral volume loss and chronic microvascular ischemic changes. Dictated by: Darin Denise M.D. on 07/11/2016 at 15:04 Approved by: Darin Denise M.D. on 07/11/2016 at 15:12 PROCEDURE: X-RAY CHEST, TWO VIEWS ([id number]) INDICATIONS: fever TECHNIQUE: 2 views of the chest were acquired. COMPARISON: None. FINDINGS: Surgical changes and devices: None. Lungs and pleura: No pleural effusions or pneumothorax. Lungs are clear. Slight increased interstitial markings within the infrahilar regions probably are chronic. Mediastinum: Mediastinal contours are normal. Heart size is normal. There may be mild aortic atherosclerosis. Bones and chest wall: No suspicious bony abnormalities. Degenerative changes of the bilateral shoulders and spine are incidentally noted. Soft tissues appear unremarkable. IMPRESSION: No acute cardiopulmonary process is evident. No definite pneumonia or overt heart failure. Dictated by: Robbie Mesa M.D. on 07/11/2016 at 13:27 Approved by: Robbie Mesa M.D. on 07/11/2016 at 13:28 Cardiac Echo Impression Echocardiogram Report Name: FEDE TAVARES Study Date: 07/12/2016 Height: 66 in Hospital Exam Location: [facility] Weight: 230 lb Gender: Male BSA: 2.1 m2 : 1940 Age: 75 yrs BP: 127/65 mmHg Reason For Study: FEVER, MURMUR Ordering Physician: ELIF TEAM Performed By: Anton Galindo Referring Physician: Jennifer MUNOZ Interpretation Summary Left ventricular wall thickness is mildly increased. Left ventricular systolic function is normal without focal wall motion abnormalities. The ejection fraction is estimated to be 60-65%. Assessment of diastolic parameters indicates a relaxation abnormality of the left ventricle, consistent with normal filling pressures. The right ventricle is normal in size and function. The right ventricular systolic pressure is estimated at 31 mmHg assuming a right atrial pressure of 8 mm Hg. The left atrium is severely dilated. The right atrium is mildly dilated. There is mild mitral regurgitation. There is no other significant valvular heart disease. There is no obvious valvular vegetation identified on this exam. The ascending aorta is mildly enlarged. Brief History As per Dr. Hollis: "HPI: Patient is a 75-year-old gentleman who presented to the emergency room with the complaint of weakness and fevers. The patient states that for the last few days he has been feeling weak and has had temperatures from 101F -103F. The patient has also complained of overall generalized weakness. There is a new onset murmur that was found upon exam while in the ER and there are some concerns for possible endocarditis. The patient does have leukocytosis with a white blood cell count of 14.1, brain CT was negative, abdomen CT was negative. Both cardiology and infectious disease were consulted from the ED." patient was therefore admitted to the hospitalist service for further evaluation and treatment. Hospital Course Patient is a 75-year-old gentleman who presented to the emergency room with the complaint of weakness and fevers. The patient states that for the last few days he has been feeling weak and has had temperatures from 101F -103F. The patient has also complained of overall generalized weakness. There is a new onset murmur that was found upon exam while in the ER and there are some concerns for possible endocarditis. The patient did have leukocytosis with a white blood cell count of 14.1 on admission, brain CT was negative, abdomen CT was negative. Both cardiology and infectious disease were consulted from the ED. patient was admitted to the hospitalist service SIRS criteria met (present on admission) -Leukocytosis white blood cell count 14.1 on admission -Fever up to 38.5 on admission. However, today the patient is afebrile -Blood cultures pending, but negative so far. -Viral PCR is negative -Antibiotics to be held per infectious disease. -Infectious disease consulted (Dr. Munoz) appreciated his time and expertise. I have discussed the patient's case with him again at length today. Possible endocarditis (present on admission) -We have obtained more blood cultures off antibiotic. -Echocardiogram fails to reveal source of fever -Cardiology consulted (Dr. Monge). I discussed with him and he will consult if needed. -Continue to hold antibiotics for now while we await results of several sets of blood cultures. Dr. Munoz believes that our lab will be able to detect HACEK group organisms. He has also ordered Bartonella and Q fever serologies -Dr. Munoz's time and expertise is appreciated -Continue telemetry monitoring for now Diabetes -Hemoglobin A1c is markedly elevated at 12.4 -Insulin sliding scale -Accu-Cheks before meals and at bedtime -We will restart metformin as patient had contrast for imaging studies over 48 hours ago. -We will continue regular insulin before meals and at bedtime when necessary. -IV fluids, given to protect kidneys from IV contrast used, has been discontinued as patient is eating and drinking well. Hyperlipidemia -Continue home dose of atorvastatin Hypertension -Continue home dose of lisinopril 10 mg daily Facial swelling is improved again today however patient does have continued proteinuria -Superior vena cava syndrome ruled out by negative chest CT scan -One wonders if patient had nephrotic range proteinuria at the time of admission with periorbital and facial edema. Will obtain nephrology consultation as this may be helpful for the patient's preservation of renal function in the future. Due to his poor diabetic control. Discussed with Dr. Benson today and patient is time and expertise. -Continue to monitor. Diet: Diabetic Disposition: Patient will be here another 24 hours for the evaluation and treatment of the above condition. Exam Vital Signs (Last) Date Time Temp Pulse Resp B/P Pulse Ox O2 Delivery O2 Flow Rate FiO2 07/17/16 17:13 36.8 65 18 107/67 97 Room Air Exam General: The patient is in no apparent distress. He appears more alert and interactive. HEENT: Head is atraumatic and normocephalic. However, his face is less swollen and edematous again today. Eyes: The periorbital edema has improved again today. Pupils are equally round and reactive to light and accommodation. Extraocular muscles are intact. Sclera are white, anicteric. Subconjunctival mucosa is pink. Ears and nose are unremarkable. Oropharynx: There are no mucosal lesions, there is no thrush, there is no pharyngitis. Neck: Is supple, there are no nodes, or masses or tenderness. Chest: Is clear to auscultation and percussion. There are no rales, rhonchi, wheezes or rubs. Heart: Rate, rhythm is regular. There is a grade 2/6 systolic ejection murmur heard best at the left sternal border. Abdomen: Good bowel sounds are present. Abdomen is obese, soft, nontender, no organomegaly or masses were appreciated. Extremities: Are symmetrical and well perfused. There is no edema, there is no cellulitis, no rash. Neurologic: There are no focal neurological deficits. Patient is now able to ambulate into the hallway. Cranial nerves II through XII are intact. There are no sensory or motor deficits. Psychiatric: Patients mood is calm and he shows no sign of agitation. Genital: Deferred Rectal: Deferred Test 07/11/16 13:45 07/13/16 01:21 07/13/16 05:20 07/15/16 04:15 Hemoglobin A1c 12.4% (4.8-5.6) Lactic Acid Level 1.7mmol/L (0.4-2.0) Troponin T < 0.010ug/L (0.0-0.011) Urinalysis Comment None Bartonella henselae IgG Antibody Negativetiter (Neg:<1:320) Bartonella henselae IgM Antibody Negativetiter (Neg:<1:100) Bartonella osullivan IgG Antibody Negativetiter (Neg:<1:320) Bartonella osullivan IgM Antibody Negativetiter (Neg:<1:100) Q Fever Phase I Antibody Negative (Neg:<1:16) Q Fever Phase II Antibody Negative (Neg:<1:16) Urine Color Yellow (YELLOW) Urine Appearance Clear (CLEAR,HAZY) Urine pH 6.0 (5.0-8.0) Urine Specific [place] 1.013 (1.003-1.035) Urine Protein 100mg/dL (NEG,TRACE) Urine Glucose (UA) 250mg/dL (NEGATIVE) Urine Ketones Negativemg/dL (NEGATIVE) Urine Occult Blood Negative (NEGATIVE) Urine Nitrite Negative (NEGATIVE) Urine Bilirubin Negative (NEGATIVE) Urine Urobilinogen 2.0mg/dL (NORMAL) Urine Leukocyte Esterase Negative (NEGATIVE) Urine RBC 0-2/hpf (0-2) Urine WBC 0-5/hpf (0-5) Urine Epithelial Cells Occasional/hpf (NONE-MOD) Urine Crystals None seen (NONE SEEN) Urine Bacteria None/hpf (NONE-FEW) Urine Hyaline Casts None/lpf (NONE) Urine Granular Casts None seen (NONE SEEN) Urine Waxy Casts None seen (NONE SEEN) Urine Red Blood Cell Casts None seen (NONE SEEN) Urine White Blood Cell Casts None seen (NONE SEEN) Urine Mucus None seen (None Seen) Urine Trichomonas None seen (NONE SEEN) Urine Yeast None (NONE SEEN) Urine Culture Reflexed Not indicated Urine Random Creatinine 52mg/dL (22-328) Urine Random Total Protein 100mg/dL (0-15) Test 07/15/16 05:44 07/15/16 14:41 07/16/16 05:55 07/17/16 05:40 Pro-B-Type Natriuretic Peptide 956.8pg/mL (0-486) Thyroid Stimulating Hormone (TSH) 4.170uIU/mL (0.450-4.500) Streptozyme 113.0IU/mL (0.0-200.0) Hold Urine Received (Received) Anti-Nuclear Antibody Screen Negative (Negative) Complement C3 167mg/dL (82-167) Complement C4 38mg/dL (14-44) Hepatitis B Surface Antigen Negative (Negative) HIV (1&2) Ag and Ab, 4th Generation Non reactive (Non Reactive) White Blood Count 9.8th/mm3 (3.8-10.1) Red Blood Count 4.02mil/mm3 (4.40-5.80) Hemoglobin 12.0g/dL (13.8-17.2) Hematocrit 34.9% (41.0-50.0) Mean Corpuscular Volume 86.8fL (81-100) Mean Corpuscular Hemoglobin 29.9pg (27.0-35.0) Mean Corpuscular Hemoglobin Concent 34.4% (32.0-37.0) Red Cell Distribution Width 12.1% (12.3-15.4) Platelet Count 329bil/L (150-400) Neutrophils (%) (Auto) 60.4% (40-74) Lymphocytes (%) (Auto) 25.6% (14-46) Monocytes (%) (Auto) 9.1% (4-12) Eosinophils (%) (Auto) 2.2% (0-5) Basophils (%) (Auto) 0.4% (0-3) Erythrocyte Sedimentation Rate 50mm/hr (0-30) Sodium Level 135mEq/L (134-144) Potassium Level 4.4mEq/L (3.5-5.2) Chloride Level 95mEq/L (97-108) Carbon Dioxide Level 28mmol/L (18-29) Blood Urea Nitrogen 13mg/dL (8-27) Creatinine 0.64mg/dL (0.76-1.27) Estimat Glomerular Filtration Rate 130mL/min (>59) Glucose Level 260mg/dL (60-99) Calcium Level 10.2mg/dL (8.5-10.1) Magnesium Level 1.5mg/dL (1.6-2.6) Total Bilirubin 0.4mg/dL (0.0-1.2) Aspartate Amino Transf (AST/SGOT) 68U/L (0-50) Alanine Aminotransferase (ALT/SGPT) 82U/L (0-44) Alkaline Phosphatase 80U/L (25-160) C-Reactive Protein 4.6mg/dL (0.0-0.5) Total Protein 6.6g/dL (6.4-8.4) Albumin 3.1g/dL (3.4-5.0) Procalcitonin 0.10ng/mL (0.00-0.08) Microbiology Results All of Patient blood cultures are negative to date. Discharge Medications Discharge Medications Aspirin Chew (Aspirin Chew) 81 Mg Chew 81 MG PO DAILY (Reported) Atorvastatin (Lipitor) 20 Mg Tablet 20 MG PO DAILYWD (Reported) Betamethasone/Propylene Glyc (Betamethasone Dp Aug 0.05% Crm) 15 Gm Cream..g. 1 APPLIC TP DAILY (Reported) TO DRY PATCHES ON LEG AND TORSO Chlorthalidone (Chlorthalidone) 25 Mg Tablet 25 MG PO DAILY Prescribed by: JOHNATHON GUSTAFSON MD Labetalol (Labetalol) 100 Mg Tablet 100 MG PO BID Prescribed by: JOHNATHON GUSTAFSON MD Lisinopril (Lisinopril) 10 Mg Tablet 10 MG PO DAILY (Reported) Metformin ER (Metformin ER) 500 Mg Tablet 500 MG PO DAILYWD (Reported) As needed Sennosides (Senna) 8.6 Mg Tablet 17.2 MG PO BID PRN PRN For Constipation Prescribed by: JOHNATHON GUSTAFSON MD Followup Plan Disposition: Patient is being discharged home. Discharge Diet: Heart Healthy, Diabetic Discharge Activity: No restrictions (The patient may return to his usual activity gradually as tolerated) Follow-up Provider: [facility] Follow-up with PCP in: 1 week Provider: Mookie Benson DO Follow-up in: Other (Patient to make apointment in October,) Time spent Time spent on discharging this patient was greater than 35 minutes, over half of which was involved in counseling and coordination of care. Alex Gustafson MD July 18, 2016 00:33
[2016-07-24 15:12] LABS: Antiproteinase 3 (PR-3) Abs <3.5 U/mL (0.0-3.5); Perinuclear (P-ANCA) <1:20 titer (Neg:<1:20)
== END 2016-07-17 17:55 | disposition home or self-care (01) | DRG 864 ==
LOC: SED 13:19 → MPC 16:35
PROVIDERS: ADMIT Neuromusculoskeletal Medicine & OMM; ATTEND Neuromusculoskeletal Medicine & OMM
DX: R50.9 Fever, unspecified (principal); I13.10 Hypertensive heart and chronic kidney disease without heart failure, with stage 1 through stage 4 chronic kidney disease, or unspecified chronic kidney disease; E11.21 Type 2 diabetes mellitus with diabetic nephropathy; E11.65 Type 2 diabetes mellitus with hyperglycemia; T38.3X5A Adverse effect of insulin and oral hypoglycemic [antidiabetic] drugs, initial encounter; R80.9 Proteinuria, unspecified; N18.9 Chronic kidney disease, unspecified; Z79.4 Long term (current) use of insulin; E78.5 Hyperlipidemia, unspecified; Z87.891 Personal history of nicotine dependence; R22.0 Localized swelling, mass and lump, head; Z91.11 Patient's noncompliance with dietary regimen; Z91.14 Patient's other noncompliance with medication regimen; R01.1 Cardiac murmur, unspecified; E66.9 Obesity, unspecified; Z68.37 Body mass index [BMI] 37.0-37.9, adult